=== PATIENT | female | born 1945 | race African-American/Black ===

== ENCOUNTER 2019-04-18 19:14 | Inpatient (IN) | payer MEDICARE, OTHER ==
[2019-04-23 22:52] VITALS: BP 133/56
[2019-04-24] MEDS ORDERED: EMPAGLIFLOZIN 25 MG PO SCH (09:00)
--- NOTE | 2019-04-24 10:05 | Psychiatric Evaluation ---
DATE OF SERVICE: PSYCHIATRIC INITIAL EVALUATION AND MENTAL STATUS EXAM PATIENT'S AGE: 74. SEX: Female. PHYSICIAN: Dr. Castellanos. CHIEF COMPLAINT: 5150 hold for grave disability and dangers to self and others. HISTORY OF PRESENT ILLNESS: The patient is a 74-year-old female, who was evaluated and placed on hold in [facility]. The patient has been agitated and restless. Since the patient came into the hospital, she has been extremely agitated and tried to take off her clothes and unable to follow directions. The patient also is trying to hit me when I was trying to talk to her and she kept pounding on the Dia chair. She also has been restless and confused. The patient did answer some questions, but she did say that she has 7 children and all living with her. She also did not know where she lives and she could not tell me when was the last time she ate or what did she eat last. The patient has a recent history of CVA and the patient has been having mood changes since then with agitation. She also has been having increased irritability and has been placed in soft restraints while in [facility]. No known suicidal or homicidal ideations, but the patient is actively hallucinating and psychotic. PAST PSYCHIATRIC HISTORY: The patient was evaluated in [facility] by Dr. Herzog. Otherwise, no known psychiatric problems. PAST MEDICAL HISTORY: The patient has recent history of CVA. The patient also has coronary artery disease as well as diabetes mellitus, hypertension, anemia, and urinary tract infection. SOCIAL HISTORY: The patient was living in her place. Her children are involved within her treatment and they were in the hospital yesterday, trying to take the patient out with no specific plan and the patient is on hold and I informed her that the patient cannot leave at that time. No known alcohol or drug use. ALLERGIES: DOXYCYCLINE AND METFORMIN. MENTAL STATUS EXAMINATION: The patient appears older than her stated age. Trying to take off her hospital gown. Agitated. In irritable and angry mood. Thought processes are disorganized and the patient is unable to give any coherent conversation. She seems to be actively responding and very agitated. The patient did not answer question regarding suicide or homicide. The patient is alert, but seems to be disoriented to time, place, person and situation. Impaired immediate, recent memories, and unable to assess her remote memories. Poor insight and poor judgment. ASSESSMENT: PRIMARY DIAGNOSIS: Unspecified psychosis. SECONDARY DIAGNOSIS: Dementia, moderate to severe, most probably vascular in origin TREATMENT PLAN: We will monitor the patient's behavior and condition closely. We will also continue [facility] and we will monitor her behavior for further recommendations. Also, we will place the patient on 5250 hold and we will discuss further treatment plans with the patient's daughters. ESTIMATED LENGTH OF STAY: 5-7 days. PATIENT'S STRENGTHS AND WEAKNESSES: The patient's strength is not clear at this time. Weaknesses are poor judgment and ineffective coping. [facility]# [id number]
[2019-04-24] MEDS ORDERED: Magnesium Hydroxide (MOM) 30 mL UDC PO PRN (18:46)
[2019-04-24] MEDS ORDERED: GLUCAGON HCl 1 MG KIT IM PRN (18:46)
[2019-04-24] MEDS ORDERED: Maalox 30 mL Cup PO PRN (18:46)
[2019-04-24] MEDS: INSULIN LISPRO SLIDING SCALE 100 UNITS/ML UNIT SUBQ SCH (21:15)
--- NOTE | 2019-04-25 02:18 | History & Physical ---
ADMIT DATE: 04/23/2019 CHIEF COMPLAINT: Psychosis. HISTORY OF PRESENT ILLNESS: The patient is a 74-year-old black female who has been transferred from [facility]. At [facility], the patient was placed on 5150 hold for danger to herself and others. The patient was initially admitted to [facility] for possible subdural hematoma. PAST MEDICAL HISTORY: Sepsis, urinary tract infection, possible coronary artery disease, hypertension, diabetes mellitus, nephropathy, chronic kidney disease, history of cerebrovascular accident, depression. PAST SURGICAL HISTORY: Status post hysterectomy, status post endarterectomy, status post hand surgery. MEDICATIONS: See medication reconciliation form. SOCIAL HISTORY: No reports of smoking, drinking alcohol or drug use. REVIEW OF SYSTEMS: See history of present illness. PHYSICAL EXAMINATION: GENERAL: The patient is currently asleep. VITAL SIGNS: On admission is temperature 98.6, pulse 82, blood pressure 163/74, respiratory rate 18, and O2 sat 100% on room air. HEENT: Normocephalic, atraumatic. Extraocular movements intact. Oropharynx is clear. NECK: Supple. No thyromegaly, no lymphadenopathy. CARDIOVASCULAR: S1, S2. No rubs or gallops. LUNGS: Clear. No wheezes or rhonchi. GASTROINTESTINAL: Soft, nontender, nondistended. Positive bowel sounds. GENITOURINARY: No CVA tenderness or suprapubic tenderness. BACK: No midline tenderness. EXTREMITIES: Equal pulses bilaterally. No cyanosis or clubbing. SKIN: Negative. PSYCHIATRIC: Unable to assess. LABORATORY DATA: No labs on admission. IMPRESSION: 1. Unspecified psychosis. 2. Dementia (moderate severe), most probably of vascular origin. 3. Coronary artery disease. 4. Hypertension. 5. Diabetes mellitus. 6. Chronic kidney disease. 7. Cerebrovascular accident. 8. Status post hysterectomy, status endarterectomy, and status post hand surgery. PLAN: The patient is admitted to Geropsych Unit at [facility]. Obtain labs in a.m. We will obtain further labs and consultation as needed. We will adjust medications as needed. [facility]# [id number]
[2019-04-25] MEDS: INSULIN LISPRO SLIDING SCALE 100 UNITS/ML UNIT SUBQ SCH ×4 (06:52→21:37)
[2019-04-25] MEDS: JARDIANCE 25 MG PO SCH (09:00)
--- NOTE | 2019-04-25 13:13 | Progress Notes ---
DATE: 04/25/2019 SUBJECTIVE: The patient is weak. The patient is in Geropsych Unit. The patient often 5150 hold. PHYSICAL EXAMINATION: VITAL SIGNS: Temperature 98.6, pulse 95, blood pressure 160/79, respirations 18, O2 sat 100% on room air. CARDIOVASCULAR: S1 and S2. RESPIRATORY: Clear. GASTROINTESTINAL: Soft. Positive bowel sounds. LABORATORY DATA: ____ pending. MICROBIOLOGY: No new microbiology results. RADIOLOGY: No new results. ASSESSMENT: 1. Psychosis. 2. Dementia (moderate to severe disease), most probably of vascular origin. 3. Coronary artery disease. 4. Hypertension. 5. Diabetes mellitus. 6. Chronic kidney disease. 7. Cerebrovascular accident. 8. Status post hysterectomy. 9. Status post enterectomy. 10. Status post hand surgery. PLAN: Continue current management and treatment. Awaiting lab results. We will adjust medications regarding low blood pressure. Repeat labs on Tuesday. Further recommends per Psychiatry Services. JOB# [id number]
--- NOTE | 2019-04-25 22:06 | Progress Notes ---
DATE: SUBJECTIVE: Chart reviewed and the patient interviewed. Also discussed the patient's condition with the staff and reviewed records and labs. The patient is still extremely agitated and in irritable mood and she is still confused. The patient also has been yelling and screaming and trying to take off her clothes. The patient also has been banging on the chair and trying to get out of the chair and earlier was trying to get out of bed, thinking that she can walk. The patient is legally blind and she has unsteady gait and high fall risk. She also is still confused and needs close monitoring. Also, during the interview, the patient is disheveled and is restless and is in irritable and angry mood and unable to answer any of my questions currently. The patient has no new medical issues. ASSESSMENT: The patient is still psychotic and agitated and considered to be gravely disabled and can be dangerous to others as well as herself. TREATMENT PLAN: We will continue Depakote 125 mg twice a day. Depakote blood level will be monitored. Also, I called the patient's family in order to discuss with them treatment plan including starting her on Risperdal, which she was taking prior to her admission and also trazodone, but family did not answer my call and I left a message with both hospital number and the office number. We will start the patient on Risperdal 0.5 mg twice a day and also because of her severe insomnia, we will add trazodone in a dose of 25 mg at bedtime. Also, continue working on behavioral modification and also, we will continue adjusting medications and try to get hold of her family. JOB# [id number]
[2019-04-26] MEDS: INSULIN LISPRO SLIDING SCALE 100 UNITS/ML UNIT SUBQ SCH ×4 (06:51→20:41)
[2019-04-26] MEDS: JARDIANCE 25 MG PO SCH (08:38)
--- NOTE | 2019-04-26 14:24 | General Progress Note ---
Subjective - Review of Systems Service Date: 04/26/19 Subjective: * Patient is in Geropsych unit * Patient is awake Objective - Results Recent Labs: Laboratory Last Values POC Glucose 190 MG/DL (70 - 105) H 04/26/19 11:31 - Physical Exam Vitals and I&O: Vital Signs Temp 98.1 F 04/26/19 06:39 Pulse 102 04/26/19 08:36 Resp 19 04/26/19 06:39 BP 154/81 04/26/19 08:36 Pulse Ox 99 04/26/19 06:39 Intake & Output 04/25/19 04/26/19 04/26/19 18:59 06:59 18:59 Intake Total 1000 120 Balance 1000 120 Intake: Oral 1000 120 Other: # Voids 3 Active Medications: Current Medications Acetaminophen (Tylenol) 650 mg PO Q6H PRN PRN Reason: Mild Pain/Headache/T above 101 Stop: 06/23/19 18:45 Al Hydrox/Mg Hydrox/Simethicone (Maalox) 30 ml PO Q6H PRN PRN Reason: Dyspepsia Stop: 06/23/19 18:45 Aspirin (Ecotrin) 81 mg PO DAILY [facility] Stop: 06/23/19 08:59 Last Admin: 04/26/19 08:34 Dose: 81 mg Atorvastatin Calcium (Lipitor) 40 mg PO DAILY [facility] Stop: 06/23/19 08:59 Last Admin: 04/26/19 08:33 Dose: 40 mg Benazepril HCl (Lotensin) 20 mg PO BID [facility] Stop: 06/24/19 16:59 Last Admin: 04/26/19 08:35 Dose: 20 mg Clonidine HCl (Wuiixeal-Kwq-3) 1 patch TD QFRI@1000 [facility] Stop: 06/26/19 09:59 Dextrose (Glutose 40%) 18.75 gm PO PRN PRN PRN Reason: Blood Glucose less than 70 Stop: 06/23/19 18:45 Divalproex Sodium (Depakote Sprinkle) 125 mg PO BID [facility]; Protocol Stop: 06/23/19 08:59 Last Admin: 04/26/19 08:32 Dose: 125 mg Glipizide (Glucotrol) 10 mg PO BIDWM [facility] Stop: 06/23/19 07:59 Last Admin: 04/26/19 08:34 Dose: 10 mg Glucagon (Glucagen) 1 mg IM PRN PRN PRN Reason: Blood Glucose less than 70 Stop: 06/23/19 18:45 Hydralazine HCl (Apresoline) 25 mg PO DAILY [facility] Stop: 06/23/19 08:59 Last Admin: 04/26/19 08:33 Dose: 25 mg Insulin Human Lispro (Humalog Insulin Sliding Scale) 0 units SUBQ ACHS HERB; Protocol Stop: 06/23/19 20:59 Last Admin: 04/26/19 12:18 Dose: 2 units Lorazepam (Ativan) 0.5 mg PO Q4HR PRN; Protocol PRN Reason: Anxiety Stop: 05/23/19 22:48 Last Admin: 04/26/19 02:24 Dose: 0.5 mg Magnesium Hydroxide (Milk Of Magnesia) 30 ml PO HS PRN PRN Reason: Constipation Stop: 06/23/19 18:45 Metoprolol Tartrate (Lopressor) 50 mg PO BID [facility] Stop: 06/23/19 08:59 Last Admin: 04/26/19 08:36 Dose: 50 mg Nitrofurantoin Macrocrystals (Macrobid) 100 mg PO BID [facility] Stop: 06/23/19 08:59 Last Admin: 04/26/19 08:36 Dose: 100 mg Ondansetron HCl (Zofran Odt) 4 mg PO Q6H PRN PRN Reason: Nausea / Vomiting Stop: 06/23/19 18:45 Patient Own Med- Jardiance ( Empagliflozin) 25mg Tab 1 PO DAILY [facility] Stop: 06/24/19 08:59 Last Admin: 04/26/19 08:38 Dose: 1 Risperidone (Risperdal) 0.5 mg PO BID [facility]; Protocol Stop: 06/24/19 08:59 Last Admin: 04/26/19 08:36 Dose: 0.5 mg Spironolactone (Aldactone) 25 mg PO DAILY [facility] Stop: 06/25/19 08:59 Last Admin: 04/26/19 08:34 Dose: 25 mg Trazodone HCl (Desyrel) 50 mg PO HS [facility]; Protocol Stop: 06/25/19 20:59 Zolpidem Tartrate (Ambien) 5 mg PO HS PRN PRN Reason: Insomnia Stop: 06/22/19 22:48 Last Admin: 04/25/19 21:38 Dose: 5 mg General: Alert, No acute distress HEENT: no Atraumatic, no PERRLA, no 6, no EOMI, no 7, no Mucous membr. moist/ pink, no Other, no 8, no 9, no 10, no 11, no 12, no 13, no 14, no 15, no 16, no 22, no 17, no 23, no 18, no 24, no 19, no 20, no 21 Neck: no Supple, no JVD, no Thyromegaly, no +2 carotid pulse wo bruit, no LAD, no Other Cardiovascular: no Regular rate, no Normal S1, no Normal S2, no Systolic murmurs , no Gallops, no Rubs, no Other Lungs: Clear to auscultation, Normal air movement Abdomen: Bowel sounds, Soft Extremities: no Clubbing, no Cyanosis, no Edema, no Pulses, no Tender, no Other Neurological: no Normal gait, no Normal speech, no 9, no Strength at 5/5 X4 ext , no Normal tone, no Sensation intact, no Cranial nerves 3-12 NL, no Reflexes 2+ , no 10, no Other, no 11 Skin: no Rash, no Breakdown, no Significant lesion, no Other Assessment/Plan - Assessment Assessment: See previous progress note - Plan Plan: * Continue current medications * Continue current treatment * Obtain labs in am Nutritional Asmnt/Malnutr-PDOC - Dietary Evaluation Malnutrition Findings (Please click <Entered> for more info): Nutritional Asmnt/Malnutrition Start: 04/24/19 14: 32 Text: Status: Complete Freq: Protocol: Document 04/24/19 14:33 LUIS (Rec: 04/24/19 14:36 LUIS [email or web address]) Nutritional Asmnt/Malnutrition Patient General Information Nutritional Screening High Risk Diagnosis Psychosis Pertinent Medical Hx/Surgical Hx CVA, CAD, DM, HTN, Anemia, UTI Subjective Information Pt is a 74-year-old female admitted on 04/23, transferred from [facility]. Pt is high risk d/t BMI 16.0, underweight. Took down pt foods that are not tolerated well, noted in [employer]. Visited pt, pt was outside room in Dia chair awake and looking around. Pt did not answer questions, did not seem to comprehend. Upon visual inspection, pt did not have clear signs of malnutrition or fat/muscle wasting. Pt was wearing a sweatshirt and headband, so I could not see her temples or clavicle, but eye sockets and cheeks were normal. Talked to charge nurse pertaining to a weight check as pt appeared to weigh more than noted 102 pounds. Nurse Darrick stated pt ate well this morning and lunch time. Will continue to monitor PO intake and weight check. Will downgrade pt to moderate risk and reassess when current weight is available. Anthropometrics HT: 57 WT: 102 LB (46.36 kg) BMI: 16.0 (Underweight) GI/ Skin Integrity GI: WNL BM: 04/24 x1 I/O: 60/Not Noted Skin: WNL Andres: 18 Diet Order: Cardiac, NCS, 2gm Na Allergy: Lactose Estimated Energy Needs: ( Underweight, CBW) 9231-1519 kcals (30-35 kcals/ kg) 46-56g Pro (1.0-1.2 g/kg) 2772-3140 ml (30-40 ml/kg) Current Diet Order/ Nutrition Support Cardiac, NCS, 2gm Na Pertinent Medications Lipitor, Glucotrol Pertinent Labs 04/20: Hgb/Hct 8.0/23.6, Glucose 101, Mg 2.3, T Pro 5.9 , Alb 2.9, CRP 3.4 Nutritional Hx/Data Height 1.7 m Height (Calculated Centimeters) 170.2 Current Weight (lbs) 46.266 kg Weight (Calculated Kilograms) 46.3 Weight (Calculated Grams) 75926.4 [place] Body Weight 135 LB (61.36 kg) % [place] Body Weight 76 Body Mass Index (BMI) 16.0 Weight Status Underweight GI Symptoms GI Symptoms None Last BM 04/24 x1 Skin Integrity/Comment: Skin: WNL Andres: 18 Current %PO Fair (50-74%) Estimated Nutritional Goals BEE in Kcals: Using Current wt Calories/Kcals/Kg 30-35 Kcals Calculated 2366-3106 Protein: Using Current wt Protein g/k.0-1.2 Protein Calculated 46-56 Fluid: ml 0864-9854 ml (30-40 ml/kg) Nutritional Problem 1. Problem Problem Underweight Etiology r/t consistent inadequate energy intake Signs/Symptoms: aeb BMI 16.0 (recommending weight check). Malnutrition Related to Morbid Obesity Malnutrition related to morbid obesity No Intervention/Recommendation Comments 1. Continue with Cardiac, NCS, 2gm Na diet as ordered. 2. Record pt foods which are not tolerated well (completed) . 3. Recommend current weight check. Expected Outcomes/Goals Expected Outcomes/Goals 1. PO intake to meet 75% of nutritional needs. 2. Monitor PO intake, wt, nutrition related labs, and skin integrity. 3. F/U as moderate risk in 3-5 days, 04/27-04/29
--- NOTE | 2019-04-26 22:11 | Progress Notes ---
DATE: 04/26/2019 SUBJECTIVE: Chart reviewed and the patient interviewed. Also discussed the patient's condition with the staff and reviewed records and labs. The patient seems to be slightly calmer, but she is still confused and easily agitated and in irritable mood, but showing some improvement. The patient also is still having restless episodes and aggressive and fighting with the staff, especially when trying to help her with her ADLs. The patient is still trying to get off the bed, although she knew that she cannot walk because of her weakness. She also is still resisting care and she still has difficulty sleeping at night. Otherwise, no side effects of Risperdal. ASSESSMENT: The patient is still confused and is still agitated. TREATMENT PLAN: We will continue monitoring her behavior and her condition closely. Also, we will increase trazodone to 50 mg at bedtime and continue Risperdal 0.5 mg twice a day and Depakote 125 mg twice a day. Also, continue working on behavior modification and her poor impulse control and we will continue to follow up. [facility]# [id number]
[2019-04-27] MEDS: INSULIN LISPRO SLIDING SCALE 100 UNITS/ML UNIT SUBQ SCH ×4 (06:33→20:46)
[2019-04-27] MEDS: JARDIANCE 25 MG PO SCH (08:43)
[2019-04-27] MEDS: cloNIDine 0.2 mg/24 hr Tdm TD SCH (09:02)
--- NOTE | 2019-04-28 00:13 | Progress Notes ---
DATE: 04/27/2019 SUBJECTIVE: The patient is awake. The patient is on antibiotics. OBJECTIVE: VITAL SIGNS: Temperature 98.9, pulse 92, blood 132/91, respiratory 20, O2 sats 98% on room air. CARDIOVASCULAR: S1 and S2. RESPIRATORY: Clear. GASTROINTESTINAL: Soft. Bowel sounds present. LABORATORY DATA: Sodium 139, potassium 4.2, chloride 100, bicarbonate 25, anion gap 8, glucose 177, calcium 8.9, BUN 20, creatinine 0.09, total bilirubin 0.4, alkaline phosphatase 61, AST 18, ALT 15, total of 6.4, and albumin 3.4. Valproic acid is 22. CBC: WBC 12.2, hemoglobin 8.3, hematocrit 44.9, platelet count of 375, 85% neutrophils, 15% lymphocytes. Lipid panels cholesterol 149, HDL 32, and LDL 89. ASSESSMENT: 1. Psychosis. 2. Dementia (moderate to severe). 3. Coronary artery disease. 4. Hypertension. 5. Diabetes mellitus, chronic kidney disease and cerebrovascular accident. 6. Status post hysterectomy. 7. Status post hand surgery. 7. Status post enterectomy. 8. Hyperglycemia. 9. Leukocytosis. 10. Anemia. PLAN: Continue medication. Obtain labs in a.m. We will repeat barber cultures. We will stop current antibiotics. We will obtain ID consultation if the patient continue to have elevated white count. JOB# [id number]
--- NOTE | 2019-04-28 02:08 | Progress Notes ---
DATE: 04/27/2019 SUBJECTIVE: Chart reviewed and the patient interviewed. Also discussed the patient's condition with the staff and reviewed records and labs. The patient slept slightly better yesterday, but she is still restless and she is still in irritable mood. The patient also is still hitting herself and the patient is on 1:1 observation because she is still confused and trying to get off bed. She also still needs close monitoring and gets irritable and agitated easily, but slightly easier to redirect her. ASSESSMENT: The patient is still agitated and psychotic and unable to care for self. TREATMENT PLAN: Continue monitoring her behavior and continue 1:1 observation. Also, we will increase trazodone to 75 mg at bedtime to help her sleep better and also get Depakote blood level and continue to follow up. JOB# [id number]
[2019-04-28] MEDS: INSULIN LISPRO SLIDING SCALE 100 UNITS/ML UNIT SUBQ SCH ×5 (06:41→20:38)
[2019-04-28] MEDS: JARDIANCE 25 MG PO SCH (08:56)
--- NOTE | 2019-04-28 12:42 | General Progress Note ---
Subjective - Review of Systems Service Date: 04/28/19 Events since last encounter: Per psychitary, patient is still agitated and confused. Patient is still unable to take care of herself. Subjective: * Patient is in Geropsych unit * Patient is awake * Patient is still agitated and confused * Awaiting lab results Objective - Results Recent Labs: Laboratory Last Values POC Glucose 127 MG/DL (70 - 105) H 04/26/19 16:38 - Physical Exam Vitals and I&O: Vital Signs Temp 98.0 F 04/28/19 05:43 Pulse 116 04/28/19 08:53 Resp 19 04/28/19 05:43 BP 156/77 04/28/19 08:53 Pulse Ox 100 04/28/19 05:43 Intake & Output 04/27/19 04/28/19 04/28/19 18:59 06:59 18:59 Intake Total 240 Balance 240 Intake: Oral 240 Other: # Voids 2 # Bowel Movements 0 Active Medications: Current Medications Acetaminophen (Tylenol) 650 mg PO Q6H PRN PRN Reason: Mild Pain/Headache/T above 101 Stop: 06/23/19 18:45 Last Admin: 04/28/19 11:59 Dose: 650 mg Al Hydrox/Mg Hydrox/Simethicone (Maalox) 30 ml PO Q6H PRN PRN Reason: Dyspepsia Stop: 06/23/19 18:45 Aspirin (Ecotrin) 81 mg PO DAILY [facility] Stop: 06/23/19 08:59 Last Admin: 04/28/19 08:52 Dose: 81 mg Atorvastatin Calcium (Lipitor) 40 mg PO DAILY [facility] Stop: 06/23/19 08:59 Last Admin: 04/28/19 08:53 Dose: 40 mg Benazepril HCl (Lotensin) 20 mg PO BID [facility] Stop: 06/24/19 16:59 Last Admin: 04/28/19 08:55 Dose: Not Given Clonidine HCl (Glmwkvep-Vmr-4) 1 patch TD QFRI@1000 [facility] Stop: 06/26/19 09:59 Last Admin: 04/27/19 09:02 Dose: 1 patch Dextrose (Glutose 40%) 18.75 gm PO PRN PRN PRN Reason: BS Below 70 if tolerate po Stop: 06/23/19 18:45 Divalproex Sodium (Depakote Sprinkle) 125 mg PO BID [facility]; Protocol Stop: 06/23/19 08:59 Last Admin: 04/28/19 08:52 Dose: 125 mg Glipizide (Glucotrol) 10 mg PO BIDWM HERB Stop: 06/23/19 07:59 Last Admin: 04/28/19 08:53 Dose: 10 mg Glucagon (Glucagen) 1 mg IM PRN PRN PRN Reason: BS Below 70 if not tolerate po Stop: 06/23/19 18:45 Hydralazine HCl (Apresoline) 25 mg PO DAILY [facility] Stop: 06/23/19 08:59 Last Admin: 04/28/19 08:53 Dose: 25 mg Insulin Human Lispro (Humalog Insulin Sliding Scale) 0 units SUBQ ACHS [facility]; Protocol Stop: 06/23/19 20:59 Last Admin: 04/28/19 11:20 Dose: 2 units Lorazepam (Ativan) 0.5 mg PO Q4HR PRN; Protocol PRN Reason: Anxiety Stop: 05/23/19 22:48 Last Admin: 04/28/19 08:52 Dose: 0.5 mg Magnesium Hydroxide (Milk Of Magnesia) 30 ml PO HS PRN PRN Reason: Constipation Stop: 06/23/19 18:45 Nitrofurantoin Macrocrystals (Macrobid) 100 mg PO BID [facility] Stop: 06/23/19 08:59 Last Admin: 04/28/19 08:52 Dose: 100 mg Ondansetron HCl (Zofran Odt) 4 mg PO Q6H PRN PRN Reason: Nausea / Vomiting Stop: 06/23/19 18:45 Patient Own Med- Jardiance ( Empagliflozin) 25mg Tab 1 PO DAILY [facility] Stop: 06/24/19 08:59 Last Admin: 04/28/19 08:56 Dose: Not Given Risperidone (Risperdal) 0.5 mg PO BID [facility]; Protocol Stop: 06/24/19 08:59 Last Admin: 04/28/19 08:53 Dose: 0.5 mg Spironolactone (Aldactone) 25 mg PO DAILY [facility] Stop: 06/25/19 08:59 Last Admin: 04/28/19 08:52 Dose: 25 mg Trazodone HCl (Desyrel) 75 mg PO HS [facility]; Protocol Stop: 06/26/19 20:59 Last Admin: 04/27/19 20:45 Dose: 75 mg General: Alert, No acute distress HEENT: no Atraumatic, no PERRLA, no 6, no EOMI, no 7, no Mucous membr. moist/ pink, no Other, no 8, no 9, no 10, no 11, no 12, no 13, no 14, no 15, no 16, no 22, no 17, no 23, no 18, no 24, no 19, no 20, no 21 Neck: no Supple, no JVD, no Thyromegaly, no +2 carotid pulse wo bruit, no LAD, no Other Cardiovascular: no Regular rate, no Normal S1, no Normal S2, no Systolic murmurs , no Gallops, no Rubs, no Other Lungs: Clear to auscultation, Normal air movement Abdomen: Bowel sounds, Soft Extremities: no Clubbing, no Cyanosis, no Edema, no Pulses, no Tender, no Other Neurological: no Normal gait, no Normal speech, no 9, no Strength at 5/5 X4 ext , no Normal tone, no Sensation intact, no Cranial nerves 3-12 NL, no Reflexes 2+ , no 10, no Other, no 11 Skin: no Rash, no Breakdown, no Significant lesion, no Other Assessment/Plan - Assessment Assessment: Leukocytosis Unspecified psychosis Vascular Dementia (moderate-severe) Hypertension Diabetes Mellitus H/O CVA S/P hysterectomy S/P endarterectomy S/P hand surgery - Plan Plan: * Continue current medications * Continue current treatment * Obtain labs on Tuesday * Awaiting culture results Nutritional Asmnt/Malnutr-PDOC - Dietary Evaluation Malnutrition Findings (Please click <Entered> for more info): Nutritional Asmnt/Malnutrition Start: 04/24/19 14: 32 Text: Status: Complete Freq: Protocol: Document 04/24/19 14:33 LUIS (Rec: 04/24/19 14:36 [email or web address] [id number]) Nutritional Asmnt/Malnutrition Patient General Information Nutritional Screening High Risk Diagnosis Psychosis Pertinent Medical Hx/Surgical Hx CVA, CAD, DM, HTN, Anemia, UTI Subjective Information Pt is a 74-year-old female admitted on 04/23, transferred from [facility]. Pt is high risk d/t BMI 16.0, underweight. Took down pt foods that are not tolerated well, noted in Computrition. Visited pt, pt was outside room in Dia chair awake and looking around. Pt did not answer questions, did not seem to comprehend. Upon visual inspection, pt did not have clear signs of malnutrition or fat/muscle wasting. Pt was wearing a sweatshirt and headband, so I could not see her temples or clavicle, but eye sockets and cheeks were normal. Talked to charge nurse pertaining to a weight check as pt appeared to weigh more than noted 102 pounds. Nurse Darrick stated pt ate well this morning and lunch time. Will continue to monitor PO intake and weight check. Will downgrade pt to moderate risk and reassess when current weight is available. Anthropometrics HT: 57 WT: 102 LB (46.36 kg) BMI: 16.0 (Underweight) GI/ Skin Integrity GI: WNL BM: 04/24 x1 I/O: 60/Not Noted Skin: WNL Andres: 18 Diet Order: Cardiac, NCS, 2gm Na Allergy: Lactose Estimated Energy Needs: ( Underweight, CBW) 7558-5191 kcals (30-35 kcals/ kg) 46-56g Pro (1.0-1.2 g/kg) 7377-4489 ml (30-40 ml/kg) Current Diet Order/ Nutrition Support Cardiac, NCS, 2gm Na Pertinent Medications Lipitor, Glucotrol Pertinent Labs 04/20: Hgb/Hct 8.0/23.6, Glucose 101, Mg 2.3, T Pro 5.9 , Alb 2.9, CRP 3.4 Nutritional Hx/Data Height 1.7 m Height (Calculated Centimeters) 170.2 Current Weight (lbs) 46.266 kg Weight (Calculated Kilograms) 46.3 Weight (Calculated Grams) 91817.4 [place] Body Weight 135 LB (61.36 kg) % [place] Body Weight 76 Body Mass Index (BMI) 16.0 Weight Status Underweight GI Symptoms GI Symptoms None Last BM 04/24 x1 Skin Integrity/Comment: Skin: WNL Andres: 18 Current %PO Fair (50-74%) Estimated Nutritional Goals BEE in Kcals: Using Current wt Calories/Kcals/Kg 30-35 Kcals Calculated 5811-5750 Protein: Using Current wt Protein g/k.0-1.2 Protein Calculated 46-56 Fluid: ml 6568-3222 ml (30-40 ml/kg) Nutritional Problem 1. Problem Problem Underweight Etiology r/t consistent inadequate energy intake Signs/Symptoms: aeb BMI 16.0 (recommending weight check). Malnutrition Related to Morbid Obesity Malnutrition related to morbid obesity No Intervention/Recommendation Comments 1. Continue with Cardiac, NCS, 2gm Na diet as ordered. 2. Record pt foods which are not tolerated well (completed) . 3. Recommend current weight check. Expected Outcomes/Goals Expected Outcomes/Goals 1. PO intake to meet 75% of nutritional needs. 2. Monitor PO intake, wt, nutrition related labs, and skin integrity. 3. F/U as moderate risk in 3-5 days, 04/27-04/29
--- NOTE | 2019-04-28 19:55 | Progress Notes ---
DATE: 04/28/2019 SUBJECTIVE: Chart reviewed and the patient interviewed. Also discussed the patient's condition with the staff and reviewed records and labs. Also discussed the patient's condition with the patient's daughter. The patient's daughter understands the treatment plan and also the medication that she was taking and she is agreeable to it and this was a misunderstanding of communication. The patient is still forgetful and is still disoriented, although she has some time of being clear. She is still restless during the day and she needs redirections. She also still trying to get out of the bed walking, although she knows that she is weak and cannot walk and also because of her being legally blind. She also needs a lot of assistance. Otherwise, the patient continued to compliant with taking her medications. LABORATORY DATA: Depakote blood level that was done on 04/27/2019 is 22. ASSESSMENT: The patient is still confused, although she seems to be less agitated. TREATMENT PLAN: Continue Risperdal 0.5 mg twice a day and trazodone 75 mg at bedtime. Also, Ambien was stopped yesterday, although it was given only on a p.r.n. basis, but since the patient is sleeping better with the trazodone, we will stop Ambien. [facility]# [id number]
[2019-04-29] MEDS: INSULIN LISPRO SLIDING SCALE 100 UNITS/ML UNIT SUBQ SCH ×4 (06:40→21:37)
--- NOTE | 2019-04-29 08:21 | General Progress Note ---
Subjective - Review of Systems Service Date: 04/29/19 Events since last encounter: Per psychiatry is still confused and agitated. Subjective: * Patient is in Geropsych unit * Patient is awake * Patient is still agitated and confused * Awaiting lab results Objective - Results Recent Labs: Laboratory Last Values POC Glucose 82 MG/DL (70 - 105) 04/29/19 06:05 - Physical Exam Vitals and I&O: Vital Signs Temp 97.3 F 04/29/19 06:39 Pulse 102 04/29/19 06:39 Resp 18 04/29/19 06:39 BP 131/76 04/29/19 06:39 Pulse Ox 100 04/29/19 06:39 Intake & Output 04/28/19 04/29/19 04/29/19 18:59 06:59 18:59 Intake Total 1000 120 Balance 1000 120 Intake: Oral 1000 120 Other: # Voids 6 1 # Bowel Movements 2 0 Active Medications: Current Medications Acetaminophen (Tylenol) 650 mg PO Q6H PRN PRN Reason: Mild Pain/Headache/T above 101 Stop: 06/23/19 18:45 Last Admin: 04/29/19 06:29 Dose: 650 mg Al Hydrox/Mg Hydrox/Simethicone (Maalox) 30 ml PO Q6H PRN PRN Reason: Dyspepsia Stop: 06/23/19 18:45 Aspirin (Ecotrin) 81 mg PO DAILY [facility] Stop: 06/23/19 08:59 Last Admin: 04/28/19 08:52 Dose: 81 mg Atorvastatin Calcium (Lipitor) 40 mg PO DAILY [facility] Stop: 06/23/19 08:59 Last Admin: 04/28/19 08:53 Dose: 40 mg Benazepril HCl (Lotensin) 20 mg PO BID [facility] Stop: 06/24/19 16:59 Last Admin: 04/28/19 16:50 Dose: Not Given Clonidine HCl (Nbftgfme-Bae-7) 1 patch TD QFRI@1000 [facility] Stop: 06/26/19 09:59 Last Admin: 04/27/19 09:02 Dose: 1 patch Dextrose (Glutose 40%) 18.75 gm PO PRN PRN PRN Reason: BS Below 70 if tolerate po Stop: 06/23/19 18:45 Divalproex Sodium (Depakote Sprinkle) 125 mg PO BID [facility]; Protocol Stop: 06/23/19 08:59 Last Admin: 04/28/19 16:48 Dose: 125 mg Glipizide (Glucotrol) 10 mg PO BIDWM [facility] Stop: 06/23/19 07:59 Last Admin: 04/28/19 18:45 Dose: 10 mg Glucagon (Glucagen) 1 mg IM PRN PRN PRN Reason: BS Below 70 if not tolerate po Stop: 06/23/19 18:45 Hydralazine HCl (Apresoline) 25 mg PO DAILY [facility] Stop: 06/23/19 08:59 Last Admin: 04/28/19 08:53 Dose: 25 mg Insulin Human Lispro (Humalog Insulin Sliding Scale) 0 units SUBQ ACHS [facility]; Protocol Stop: 06/23/19 20:59 Last Admin: 04/29/19 06:40 Dose: Not Given Lorazepam (Ativan) 0.5 mg PO Q4HR PRN; Protocol PRN Reason: Anxiety Stop: 05/23/19 22:48 Last Admin: 04/29/19 06:30 Dose: 0.5 mg Magnesium Hydroxide (Milk Of Magnesia) 30 ml PO HS PRN PRN Reason: Constipation Stop: 06/23/19 18:45 Nitrofurantoin Macrocrystals (Macrobid) 100 mg PO BID [facility] Stop: 06/23/19 08:59 Last Admin: 04/28/19 16:45 Dose: 100 mg Ondansetron HCl (Zofran Odt) 4 mg PO Q6H PRN PRN Reason: Nausea / Vomiting Stop: 06/23/19 18:45 Patient Own Med- Jardiance ( Empagliflozin) 25mg Tab 1 PO DAILY [facility] Stop: 06/24/19 08:59 Last Admin: 04/28/19 08:56 Dose: Not Given Risperidone (Risperdal) 0.5 mg PO BID [facility]; Protocol Stop: 06/24/19 08:59 Last Admin: 04/28/19 16:45 Dose: 0.5 mg Spironolactone (Aldactone) 25 mg PO DAILY [facility] Stop: 06/25/19 08:59 Last Admin: 04/28/19 08:52 Dose: 25 mg Trazodone HCl (Desyrel) 75 mg PO HS [facility]; Protocol Stop: 06/26/19 20:59 Last Admin: 04/28/19 20:38 Dose: 75 mg General: Alert, No acute distress HEENT: no Atraumatic, no PERRLA, no 6, no EOMI, no 7, no Mucous membr. moist/ pink, no Other, no 8, no 9, no 10, no 11, no 12, no 13, no 14, no 15, no 16, no 22, no 17, no 23, no 18, no 24, no 19, no 20, no 21 Neck: no Supple, no JVD, no Thyromegaly, no +2 carotid pulse wo bruit, no LAD, no Other Cardiovascular: no Regular rate, no Normal S1, no Normal S2, no Systolic murmurs , no Gallops, no Rubs, no Other Lungs: Clear to auscultation, Normal air movement Abdomen: Bowel sounds, Soft Extremities: no Clubbing, no Cyanosis, no Edema, no Pulses, no Tender, no Other Neurological: no Normal gait, no Normal speech, no 9, no Strength at 5/5 X4 ext , no Normal tone, no Sensation intact, no Cranial nerves 3-12 NL, no Reflexes 2+ , no 10, no Other, no 11 Skin: no Rash, no Breakdown, no Significant lesion, no Other Assessment/Plan - Assessment Assessment: Leukocytosis Unspecified psychosis Vascular Dementia (moderate-severe) Hypertension Diabetes Mellitus H/O CVA S/P hysterectomy S/P endarterectomy S/P hand surgery - Plan Plan: * Continue current medications * Continue current treatment * Obtain labs on Tuesday * Awaiting culture results Nutritional Asmnt/Malnutr-PDOC - Dietary Evaluation Malnutrition Findings (Please click <Entered> for more info): Nutritional Asmnt/Malnutrition Start: 04/24/19 14: 32 Text: Status: Complete Freq: Protocol: Document 04/24/19 14:33 LUIS (Rec: 04/24/19 14:36 LUIS [id number]) Nutritional Asmnt/Malnutrition Patient General Information Nutritional Screening High Risk Diagnosis Psychosis Pertinent Medical Hx/Surgical Hx CVA, CAD, DM, HTN, Anemia, UTI Subjective Information Pt is a 74-year-old female admitted on 04/23, transferred from [facility]. Pt is high risk d/t BMI 16.0, underweight. Took down pt foods that are not tolerated well, noted in Computrition. Visited pt, pt was outside room in Dia chair awake and looking around. Pt did not answer questions, did not seem to comprehend. Upon visual inspection, pt did not have clear signs of malnutrition or fat/muscle wasting. Pt was wearing a sweatshirt and headband, so I could not see her temples or clavicle, but eye sockets and cheeks were normal. Talked to charge nurse pertaining to a weight check as pt appeared to weigh more than noted 102 pounds. Nurse Darrick stated pt ate well this morning and lunch time. Will continue to monitor PO intake and weight check. Will downgrade pt to moderate risk and reassess when current weight is available. Anthropometrics HT: 57 WT: 102 LB (46.36 kg) BMI: 16.0 (Underweight) GI/ Skin Integrity GI: WNL BM: 04/24 x1 I/O: 60/Not Noted Skin: WNL Andres: 18 Diet Order: Cardiac, NCS, 2gm Na Allergy: Lactose Estimated Energy Needs: ( Underweight, CBW) 4353-9777 kcals (30-35 kcals/ kg) 46-56g Pro (1.0-1.2 g/kg) 4779-5740 ml (30-40 ml/kg) Current Diet Order/ Nutrition Support Cardiac, NCS, 2gm Na Pertinent Medications Lipitor, Glucotrol Pertinent Labs 04/20: Hgb/Hct 8.0/23.6, Glucose 101, Mg 2.3, T Pro 5.9 , Alb 2.9, CRP 3.4 Nutritional Hx/Data Height 1.7 m Height (Calculated Centimeters) 170.2 Current Weight (lbs) 46.266 kg Weight (Calculated Kilograms) 46.3 Weight (Calculated Grams) 93549.4 [place] Body Weight 135 LB (61.36 kg) % [place] Body Weight 76 Body Mass Index (BMI) 16.0 Weight Status Underweight GI Symptoms GI Symptoms None Last BM 04/24 x1 Skin Integrity/Comment: Skin: WNL Andres: 18 Current %PO Fair (50-74%) Estimated Nutritional Goals BEE in Kcals: Using Current wt Calories/Kcals/Kg 30-35 Kcals Calculated 8206-0286 Protein: Using Current wt Protein g/k.0-1.2 Protein Calculated 46-56 Fluid: ml 2221-4926 ml (30-40 ml/kg) Nutritional Problem 1. Problem Problem Underweight Etiology r/t consistent inadequate energy intake Signs/Symptoms: aeb BMI 16.0 (recommending weight check). Malnutrition Related to Morbid Obesity Malnutrition related to morbid obesity No Intervention/Recommendation Comments 1. Continue with Cardiac, NCS, 2gm Na diet as ordered. 2. Record pt foods which are not tolerated well (completed) . 3. Recommend current weight check. Expected Outcomes/Goals Expected Outcomes/Goals 1. PO intake to meet 75% of nutritional needs. 2. Monitor PO intake, wt, nutrition related labs, and skin integrity. 3. F/U as moderate risk in 3-5 days, 04/27-04/29
[2019-04-29] MEDS: JARDIANCE 25 MG PO SCH (08:46)
--- NOTE | 2019-04-29 20:22 | Progress Notes ---
DATE: 04/29/2019 SUBJECTIVE: Chart reviewed and the patient interviewed. Also discussed the patient's condition with the staff and reviewed records and labs. The patient continued to be disoriented, forgetful, and restless. The patient also is still trying to get out of the bed, exposing herself to dangers of falling and has to be monitored closely and she still needs lots of redirections. The patient has been given Ativan on a p.r.n. basis. ASSESSMENT: The patient is still agitated and is still psychotic and needs redirections. TREATMENT PLAN: Continue current treatment and medications. Also, continue working on behavior modification and her irritability and continue to follow up closely. JOB# [id number]
[2019-04-30] MEDS: INSULIN LISPRO SLIDING SCALE 100 UNITS/ML UNIT SUBQ SCH ×4 (06:58→21:00)
[2019-04-30] MEDS: JARDIANCE 25 MG PO SCH (08:08)
--- NOTE | 2019-04-30 09:18 | General Progress Note ---
Subjective - Review of Systems Service Date: 04/30/19 Subjective: * Patient is in Geropsych unit * Patient is awake * Patient is still agitated and confused * Awaiting lab results Objective - Results Recent Labs: Laboratory Last Values POC Glucose 83 MG/DL (70 - 105) 04/30/19 06:18 - Physical Exam Vitals and I&O: Vital Signs Temp 97.6 F 04/30/19 06:29 Pulse 70 04/30/19 08:05 Resp 18 04/30/19 06:29 BP 134/83 04/30/19 08:05 Pulse Ox 100 04/30/19 06:29 Intake & Output 04/29/19 04/30/19 04/30/19 18:59 06:59 18:59 Intake Total 240 120 Balance 240 120 Intake: Oral 240 120 Other: # Voids 1 2 Active Medications: Current Medications Acetaminophen (Tylenol) 650 mg PO Q6H PRN PRN Reason: Mild Pain/Headache/T above 101 Stop: 06/23/19 18:45 Last Admin: 04/30/19 08:03 Dose: 650 mg Al Hydrox/Mg Hydrox/Simethicone (Maalox) 30 ml PO Q6H PRN PRN Reason: Dyspepsia Stop: 06/23/19 18:45 Aspirin (Ecotrin) 81 mg PO DAILY [facility] Stop: 06/23/19 08:59 Last Admin: 04/30/19 08:05 Dose: 81 mg Atorvastatin Calcium (Lipitor) 40 mg PO DAILY [facility] Stop: 06/23/19 08:59 Last Admin: 04/30/19 08:05 Dose: 40 mg Benazepril HCl (Lotensin) 20 mg PO BID [facility] Stop: 06/24/19 16:59 Last Admin: 04/30/19 08:05 Dose: 20 mg Clonidine HCl (Lrpotptz-Qjj-4) 1 patch TD QFRI@1000 [facility] Stop: 06/26/19 09:59 Last Admin: 04/27/19 09:02 Dose: 1 patch Dextrose (Glutose 40%) 18.75 gm PO PRN PRN PRN Reason: BS Below 70 if tolerate po Stop: 06/23/19 18:45 Divalproex Sodium (Depakote Sprinkle) 125 mg PO BID [facility]; Protocol Stop: 06/23/19 08:59 Last Admin: 04/30/19 08:04 Dose: 125 mg Glipizide (Glucotrol) 10 mg PO BIDWM [facility] Stop: 06/23/19 07:59 Last Admin: 04/30/19 08:04 Dose: 10 mg Glucagon (Glucagen) 1 mg IM PRN PRN PRN Reason: BS Below 70 if not tolerate po Stop: 06/23/19 18:45 Hydralazine HCl (Apresoline) 25 mg PO DAILY [facility] Stop: 06/23/19 08:59 Last Admin: 04/30/19 08:03 Dose: 25 mg Insulin Human Lispro (Humalog Insulin Sliding Scale) 0 units SUBQ ACHS [facility]; Protocol Stop: 06/23/19 20:59 Last Admin: 04/30/19 06:58 Dose: Not Given Lorazepam (Ativan) 0.5 mg PO Q4HR PRN; Protocol PRN Reason: Anxiety Stop: 05/23/19 22:48 Last Admin: 04/30/19 08:03 Dose: 0.5 mg Magnesium Hydroxide (Milk Of Magnesia) 30 ml PO HS PRN PRN Reason: Constipation Stop: 06/23/19 18:45 Nitrofurantoin Macrocrystals (Macrobid) 100 mg PO BID [facility] Stop: 06/23/19 08:59 Last Admin: 04/30/19 08:06 Dose: 100 mg Ondansetron HCl (Zofran Odt) 4 mg PO Q6H PRN PRN Reason: Nausea / Vomiting Stop: 06/23/19 18:45 Patient Own Med- Jardiance ( Empagliflozin) 25mg Tab 1 PO DAILY [facility] Stop: 06/24/19 08:59 Last Admin: 04/30/19 08:08 Dose: 1 Risperidone (Risperdal) 0.5 mg PO BID [facility]; Protocol Stop: 06/24/19 08:59 Last Admin: 04/30/19 08:03 Dose: 0.5 mg Spironolactone (Aldactone) 25 mg PO DAILY [facility] Stop: 06/25/19 08:59 Last Admin: 04/30/19 08:04 Dose: 25 mg Trazodone HCl (Desyrel) 100 mg PO HS [facility]; Protocol Stop: 06/29/19 20:59 General: Alert, No acute distress HEENT: no Atraumatic, no PERRLA, no 6, no EOMI, no 7, no Mucous membr. moist/ pink, no Other, no 8, no 9, no 10, no 11, no 12, no 13, no 14, no 15, no 16, no 22, no 17, no 23, no 18, no 24, no 19, no 20, no 21 Neck: no Supple, no JVD, no Thyromegaly, no +2 carotid pulse wo bruit, no LAD, no Other Cardiovascular: no Regular rate, no Normal S1, no Normal S2, no Systolic murmurs , no Gallops, no Rubs, no Other Lungs: Clear to auscultation, Normal air movement Abdomen: Bowel sounds, Soft Extremities: no Clubbing, no Cyanosis, no Edema, no Pulses, no Tender, no Other Neurological: no Normal gait, no Normal speech, no 9, no Strength at 5/5 X4 ext , no Normal tone, no Sensation intact, no Cranial nerves 3-12 NL, no Reflexes 2+ , no 10, no Other, no 11 Skin: no Rash, no Breakdown, no Significant lesion, no Other Assessment/Plan - Assessment Assessment: Leukocytosis Unspecified psychosis Vascular Dementia (moderate-severe) Hypertension Diabetes Mellitus H/O CVA S/P hysterectomy S/P endarterectomy S/P hand surgery - Plan Plan: * Continue current medications * Continue current treatment * Awaitg lab results * Awaiting culture results * Further per psychiatry Nutritional Asmnt/Malnutr-PDOC - Dietary Evaluation Malnutrition Findings (Please click <Entered> for more info): Nutritional Asmnt/Malnutrition Start: 04/24/19 14: 32 Text: Status: Complete Freq: Protocol: Document 04/24/19 14:33 LUIS (Rec: 04/24/19 14:36 LUIS [email or web address]) Nutritional Asmnt/Malnutrition Patient General Information Nutritional Screening High Risk Diagnosis Psychosis Pertinent Medical Hx/Surgical Hx CVA, CAD, DM, HTN, Anemia, UTI Subjective Information Pt is a 74-year-old female admitted on 04/23, transferred from [facility]. Pt is high risk d/t BMI 16.0, underweight. Took down pt foods that are not tolerated well, noted in Computrition. Visited pt, pt was outside room in Dia chair awake and looking around. Pt did not answer questions, did not seem to comprehend. Upon visual inspection, pt did not have clear signs of malnutrition or fat/muscle wasting. Pt was wearing a sweatshirt and headband, so I could not see her temples or clavicle, but eye sockets and cheeks were normal. Talked to charge nurse pertaining to a weight check as pt appeared to weigh more than noted 102 pounds. Nurse Darrick stated pt ate well this morning and lunch time. Will continue to monitor PO intake and weight check. Will downgrade pt to moderate risk and reassess when current weight is available. Anthropometrics HT: 57 WT: 102 LB (46.36 kg) BMI: 16.0 (Underweight) GI/ Skin Integrity GI: WNL BM: 04/24 x1 I/O: 60/Not Noted Skin: WNL Andres: 18 Diet Order: Cardiac, NCS, 2gm Na Allergy: Lactose Estimated Energy Needs: ( Underweight, CBW) 2806-4420 kcals (30-35 kcals/ kg) 46-56g Pro (1.0-1.2 g/kg) 5388-9646 ml (30-40 ml/kg) Current Diet Order/ Nutrition Support Cardiac, NCS, 2gm Na Pertinent Medications Lipitor, Glucotrol Pertinent Labs 04/20: Hgb/Hct 8.0/23.6, Glucose 101, Mg 2.3, T Pro 5.9 , Alb 2.9, CRP 3.4 Nutritional Hx/Data Height 1.7 m Height (Calculated Centimeters) 170.2 Current Weight (lbs) 46.266 kg Weight (Calculated Kilograms) 46.3 Weight (Calculated Grams) 31243.4 [place] Body Weight 135 LB (61.36 kg) % [place] Body Weight 76 Body Mass Index (BMI) 16.0 Weight Status Underweight GI Symptoms GI Symptoms None Last BM 04/24 x1 Skin Integrity/Comment: Skin: WNL Andres: 18 Current %PO Fair (50-74%) Estimated Nutritional Goals BEE in Kcals: Using Current wt Calories/Kcals/Kg 30-35 Kcals Calculated 9846-7208 Protein: Using Current wt Protein g/k.0-1.2 Protein Calculated 46-56 Fluid: ml 8436-7120 ml (30-40 ml/kg) Nutritional Problem 1. Problem Problem Underweight Etiology r/t consistent inadequate energy intake Signs/Symptoms: aeb BMI 16.0 (recommending weight check). Malnutrition Related to Morbid Obesity Malnutrition related to morbid obesity No Intervention/Recommendation Comments 1. Continue with Cardiac, NCS, 2gm Na diet as ordered. 2. Record pt foods which are not tolerated well (completed) . 3. Recommend current weight check. Expected Outcomes/Goals Expected Outcomes/Goals 1. PO intake to meet 75% of nutritional needs. 2. Monitor PO intake, wt, nutrition related labs, and skin integrity. 3. F/U as moderate risk in 3-5 days, 04/27-04/29
--- NOTE | 2019-05-01 01:55 | Progress Notes ---
DATE: 04/30/2019 SUBJECTIVE: Chart was reviewed and the patient interviewed. Also discussed the patient's condition with the staff and reviewed records and labs. The patient still has periods of anxiety and irritability. The patient noted banging the side rails of the bed and trying to get out of the bed in a confused state. The patient also still has difficulty following directions. Also, has difficulty sleeping at night and according to staff, she did not sleep well last night. Also, the patient needs lots of redirections. Her hygiene is still poor but at the same time, she is able to follow directions. ASSESSMENT: The patient is still agitated and psychotic. TREATMENT PLAN: Continue to monitor behavior and condition closely. Also, increase trazodone to 100 mg at bedtime. Also we will try to arrange about discharge of the patient and if possible placement or if the patient's daughter would like to take her back home. JOB# [id number]
[2019-05-01] MEDS: INSULIN LISPRO SLIDING SCALE 100 UNITS/ML UNIT SUBQ SCH ×4 (06:59→20:33)
[2019-05-01] MEDS: JARDIANCE 25 MG PO SCH (09:35)
--- NOTE | 2019-05-01 10:55 | Progress Notes ---
DATE: SUBJECTIVE: Chart reviewed and the patient interviewed. Also discussed the patient's condition with the staff and reviewed records and labs. The patient is still having episodes of agitation and irritability, but slightly easier to redirect her. The patient also slept slightly better yesterday. She is still confused and is trying to get off bed exposing herself to dangers of falling. She also still has mood swings. Otherwise, the patient is compliant with medications with no side effects of medications. ASSESSMENT: The patient is still confused and needs close monitoring. TREATMENT PLAN: Continue monitoring her behavior and her condition closely. Also planning to discuss with the patient's daughter discharge plans and if possible placement issue and we will continue to follow up closely. [facility]# [id number]
--- NOTE | 2019-05-01 19:30 | General Progress Note ---
Subjective - Review of Systems Service Date: 05/01/19 Subjective: * Patient is in Geropsych unit * Patient is awake * Patient is still agitated and confused * Awaiting lab results Objective - Results Recent Labs: Laboratory Last Values POC Glucose 91 MG/DL (70 - 105) 05/01/19 11:53 - Physical Exam Vitals and I&O: Vital Signs Temp 97.2 F 05/01/19 14:00 Pulse 106 05/01/19 16:26 Resp 20 05/01/19 14:00 BP 123/70 05/01/19 16:26 Pulse Ox 100 05/01/19 14:00 Intake & Output 05/01/19 05/01/19 05/02/19 06:59 18:59 06:59 Intake Total 120 Balance 120 Intake: Oral 120 Other: # Voids 1 # Bowel Movements 0 Active Medications: Current Medications Acetaminophen (Tylenol) 650 mg PO Q6H PRN PRN Reason: Mild Pain/Headache/T above 101 Stop: 06/23/19 18:45 Last Admin: 04/30/19 13:08 Dose: 650 mg Al Hydrox/Mg Hydrox/Simethicone (Maalox) 30 ml PO Q6H PRN PRN Reason: Dyspepsia Stop: 06/23/19 18:45 Last Admin: 05/01/19 18:08 Dose: 30 ml Aspirin (Ecotrin) 81 mg PO DAILY [facility] Stop: 06/23/19 08:59 Last Admin: 05/01/19 09:05 Dose: 81 mg Atorvastatin Calcium (Lipitor) 40 mg PO DAILY [facility] Stop: 06/23/19 08:59 Last Admin: 05/01/19 09:05 Dose: 40 mg Benazepril HCl (Lotensin) 20 mg PO BID [facility] Stop: 06/24/19 16:59 Last Admin: 05/01/19 16:26 Dose: 20 mg Clonidine HCl (Ejurjpxa-Vdt-6) 1 patch TD QFRI@1000 [facility] Stop: 06/26/19 09:59 Last Admin: 04/27/19 09:02 Dose: 1 patch Dextrose (Glutose 40%) 18.75 gm PO PRN PRN PRN Reason: BS Below 70 if tolerate po Stop: 06/23/19 18:45 Divalproex Sodium (Depakote Sprinkle) 125 mg PO BID [facility]; Protocol Stop: 06/23/19 08:59 Last Admin: 05/01/19 16:25 Dose: 125 mg Glipizide (Glucotrol) 10 mg PO BIDWM [facility] Stop: 06/23/19 07:59 Last Admin: 05/01/19 17:26 Dose: 10 mg Glucagon (Glucagen) 1 mg IM PRN PRN PRN Reason: BS Below 70 if not tolerate po Stop: 06/23/19 18:45 Hydralazine HCl (Apresoline) 25 mg PO DAILY [facility] Stop: 06/23/19 08:59 Last Admin: 05/01/19 09:05 Dose: 25 mg Insulin Human Lispro (Humalog Insulin Sliding Scale) 0 units SUBQ ACHS [facility]; Protocol Stop: 06/23/19 20:59 Last Admin: 05/01/19 17:05 Dose: Not Given Lorazepam (Ativan) 0.5 mg PO Q4HR PRN; Protocol PRN Reason: Anxiety Stop: 05/23/19 22:48 Last Admin: 04/30/19 13:08 Dose: 0.5 mg Magnesium Hydroxide (Milk Of Magnesia) 30 ml PO HS PRN PRN Reason: Constipation Stop: 06/23/19 18:45 Nitrofurantoin Macrocrystals (Macrobid) 100 mg PO BID [facility] Stop: 06/23/19 08:59 Last Admin: 05/01/19 16:25 Dose: 100 mg Ondansetron HCl (Zofran Odt) 4 mg PO Q6H PRN PRN Reason: Nausea / Vomiting Stop: 06/23/19 18:45 Last Admin: 04/30/19 13:08 Dose: 4 mg Patient Own Med- Jardiance ( Empagliflozin) 25mg Tab 1 PO DAILY [facility] Stop: 06/24/19 08:59 Last Admin: 05/01/19 09:35 Dose: 1 Risperidone (Risperdal) 0.5 mg PO BID [facility]; Protocol Stop: 06/24/19 08:59 Last Admin: 05/01/19 16:26 Dose: 0.5 mg Spironolactone (Aldactone) 25 mg PO DAILY [facility] Stop: 06/25/19 08:59 Last Admin: 05/01/19 09:04 Dose: 25 mg Trazodone HCl (Desyrel) 100 mg PO HS [facility]; Protocol Stop: 06/29/19 20:59 Last Admin: 04/30/19 21:00 Dose: 100 mg General: Alert, No acute distress HEENT: no Atraumatic, no PERRLA, no 6, no EOMI, no 7, no Mucous membr. moist/ pink, no Other, no 8, no 9, no 10, no 11, no 12, no 13, no 14, no 15, no 16, no 22, no 17, no 23, no 18, no 24, no 19, no 20, no 21 Neck: no Supple, no JVD, no Thyromegaly, no +2 carotid pulse wo bruit, no LAD, no Other Cardiovascular: no Regular rate, no Normal S1, no Normal S2, no Systolic murmurs , no Gallops, no Rubs, no Other Lungs: Clear to auscultation, Normal air movement Abdomen: Bowel sounds, Soft Extremities: no Clubbing, no Cyanosis, no Edema, no Pulses, no Tender, no Other Neurological: no Normal gait, no Normal speech, no 9, no Strength at 5/5 X4 ext , no Normal tone, no Sensation intact, no Cranial nerves 3-12 NL, no Reflexes 2+ , no 10, no Other, no 11 Skin: no Rash, no Breakdown, no Significant lesion, no Other Assessment/Plan - Assessment Assessment: Leukocytosis Unspecified psychosis Vascular Dementia (moderate-severe) Hypertension Diabetes Mellitus H/O CVA S/P hysterectomy S/P endarterectomy S/P hand surgery - Plan Plan: * Continue current medications * Continue current treatment * Awaitg lab results * Awaiting culture results * Further per psychiatry Nutritional Asmnt/Malnutr-PDOC - Dietary Evaluation Malnutrition Findings (Please click <Entered> for more info): Nutritional Asmnt/Malnutrition Start: 04/24/19 14: 32 Text: Status: Complete Freq: Protocol: Document 04/24/19 14:33 LUIS (Rec: 04/24/19 14:36 LUIS [email or web address]) Nutritional Asmnt/Malnutrition Patient General Information Nutritional Screening High Risk Diagnosis Psychosis Pertinent Medical Hx/Surgical Hx CVA, CAD, DM, HTN, Anemia, UTI Subjective Information Pt is a 74-year-old female admitted on 04/23, transferred from [facility]. Pt is high risk d/t BMI 16.0, underweight. Took down pt foods that are not tolerated well, noted in Computrition. Visited pt, pt was outside room in Dia chair awake and looking around. Pt did not answer questions, did not seem to comprehend. Upon visual inspection, pt did not have clear signs of malnutrition or fat/muscle wasting. Pt was wearing a sweatshirt and headband, so I could not see her temples or clavicle, but eye sockets and cheeks were normal. Talked to charge nurse pertaining to a weight check as pt appeared to weigh more than noted 102 pounds. Nurse Darrick stated pt ate well this morning and lunch time. Will continue to monitor PO intake and weight check. Will downgrade pt to moderate risk and reassess when current weight is available. Anthropometrics HT: 57 WT: 102 LB (46.36 kg) BMI: 16.0 (Underweight) GI/ Skin Integrity GI: WNL BM: 04/24 x1 I/O: 60/Not Noted Skin: WNL Andres: 18 Diet Order: Cardiac, NCS, 2gm Na Allergy: Lactose Estimated Energy Needs: ( Underweight, CBW) 4196-1213 kcals (30-35 kcals/ kg) 46-56g Pro (1.0-1.2 g/kg) 0174-8927 ml (30-40 ml/kg) Current Diet Order/ Nutrition Support Cardiac, NCS, 2gm Na Pertinent Medications Lipitor, Glucotrol Pertinent Labs 04/20: Hgb/Hct 8.0/23.6, Glucose 101, Mg 2.3, T Pro 5.9 , Alb 2.9, CRP 3.4 Nutritional Hx/Data Height 1.7 m Height (Calculated Centimeters) 170.2 Current Weight (lbs) 46.266 kg Weight (Calculated Kilograms) 46.3 Weight (Calculated Grams) 39960.4 [place] Body Weight 135 LB (61.36 kg) % [place] Body Weight 76 Body Mass Index (BMI) 16.0 Weight Status Underweight GI Symptoms GI Symptoms None Last BM 04/24 x1 Skin Integrity/Comment: Skin: WNL Andres: 18 Current %PO Fair (50-74%) Estimated Nutritional Goals BEE in Kcals: Using Current wt Calories/Kcals/Kg 30-35 Kcals Calculated 9086-3336 Protein: Using Current wt Protein g/k.0-1.2 Protein Calculated 46-56 Fluid: ml 1031-2719 ml (30-40 ml/kg) Nutritional Problem 1. Problem Problem Underweight Etiology r/t consistent inadequate energy intake Signs/Symptoms: aeb BMI 16.0 (recommending weight check). Malnutrition Related to Morbid Obesity Malnutrition related to morbid obesity No Intervention/Recommendation Comments 1. Continue with Cardiac, NCS, 2gm Na diet as ordered. 2. Record pt foods which are not tolerated well (completed) . 3. Recommend current weight check. Expected Outcomes/Goals Expected Outcomes/Goals 1. PO intake to meet 75% of nutritional needs. 2. Monitor PO intake, wt, nutrition related labs, and skin integrity. 3. F/U as moderate risk in 3-5 days, 04/27-04/29
[2019-05-02] MEDS: INSULIN LISPRO SLIDING SCALE 100 UNITS/ML UNIT SUBQ SCH ×4 (07:01→20:22)
[2019-05-02] MEDS: JARDIANCE 25 MG PO SCH (09:49)
--- NOTE | 2019-05-02 11:10 | Progress Notes ---
DATE: 05/02/2019 PSYCHIATRIC PROGRESS NOTE SUBJECTIVE: Chart reviewed and patient interviewed. Also, discussed the patient's condition with the staff and reviewed records and labs. The patient still has disorganized thoughts and repeating sentences and the questions, but at the same time, she seems to be calmer and easier to redirect her. The patient still has episodes of beating on her chest for no reason and in a confused state. She also is still having episodes of being suspicious and paranoid, but in general, not as agitated. The patient also has been compliant with taking her medications and she is sleeping better. ASSESSMENT: The patient is showing improvement, but still confused. TREATMENT PLAN: Continue monitoring her behavior and her condition closely. Also, continue Depakote 125 mg twice a day, Risperdal 0.5 mg twice a day, and trazodone 100 mg at bedtime. Depakote blood level that was done yesterday came back to be at 23. Continue same dose and continue to follow up closely. Also, we will try to contact her daughter today to discussed with her discharge plans and the placement issue if she agrees. JOB# [id number]
[2019-05-03] MEDS: JARDIANCE 25 MG PO SCH (08:56)
--- NOTE | 2019-05-03 11:30 | General Progress Note ---
Subjective - Review of Systems Service Date: 05/02/19 Subjective: * Patient is in Geropsych unit * Patient is awake * Patient is still confused * Awaiting lab results Objective - Results Recent Labs: Laboratory Last Values POC Glucose 91 MG/DL (70 - 105) 05/01/19 11:53 - Physical Exam Vitals and I&O: Vital Signs Temp 97.8 F 05/03/19 06:34 Pulse 86 05/03/19 08:38 Resp 16 05/03/19 08:00 BP 137/69 05/03/19 08:38 Pulse Ox 96 05/03/19 06:34 Intake & Output 05/02/19 05/03/19 05/03/19 18:59 06:59 18:59 Intake Total 900 120 Balance 900 120 Intake: Oral 900 120 Other: # Voids 3 3 # Bowel Movements 1 Active Medications: Current Medications Acetaminophen (Tylenol) 650 mg PO Q6H PRN PRN Reason: Mild Pain/Headache/T above 101 Stop: 06/23/19 18:45 Last Admin: 05/03/19 02:39 Dose: 650 mg Al Hydrox/Mg Hydrox/Simethicone (Maalox) 30 ml PO Q6H PRN PRN Reason: Dyspepsia Stop: 06/23/19 18:45 Last Admin: 05/01/19 18:08 Dose: 30 ml Aspirin (Ecotrin) 81 mg PO DAILY [facility] Stop: 06/23/19 08:59 Last Admin: 05/03/19 08:35 Dose: 81 mg Atorvastatin Calcium (Lipitor) 40 mg PO DAILY [facility] Stop: 06/23/19 08:59 Last Admin: 05/03/19 08:35 Dose: 40 mg Benazepril HCl (Lotensin) 20 mg PO BID [facility] Stop: 06/24/19 16:59 Last Admin: 05/03/19 08:37 Dose: 20 mg Clonidine HCl (Jbvsamka-Pry-3) 1 patch TD QFRI@1000 [facility] Stop: 06/26/19 09:59 Last Admin: 04/27/19 09:02 Dose: 1 patch Dextrose (Glutose 40%) 18.75 gm PO PRN PRN PRN Reason: BS Below 70 if tolerate po Stop: 06/23/19 18:45 Divalproex Sodium (Depakote Sprinkle) 125 mg PO BID [facility]; Protocol Stop: 06/23/19 08:59 Last Admin: 05/03/19 08:35 Dose: 125 mg Glipizide (Glucotrol) 10 mg PO BIDWM HERB Stop: 06/23/19 07:59 Last Admin: 05/03/19 08:37 Dose: 10 mg Glucagon (Glucagen) 1 mg IM PRN PRN PRN Reason: BS Below 70 if not tolerate po Stop: 06/23/19 18:45 Hydralazine HCl (Apresoline) 25 mg PO DAILY [facility] Stop: 06/23/19 08:59 Last Admin: 05/03/19 08:38 Dose: 25 mg Insulin Human Lispro (Humalog Insulin Sliding Scale) 0 units SUBQ ACHS [facility]; Protocol Stop: 06/23/19 20:59 Last Admin: 05/02/19 20:22 Dose: Not Given Lorazepam (Ativan) 0.5 mg PO Q4HR PRN; Protocol PRN Reason: Anxiety Stop: 05/23/19 22:48 Last Admin: 05/02/19 15:21 Dose: 0.5 mg Magnesium Hydroxide (Milk Of Magnesia) 30 ml PO HS PRN PRN Reason: Constipation Stop: 06/23/19 18:45 Ondansetron HCl (Zofran Odt) 4 mg PO Q6H PRN PRN Reason: Nausea / Vomiting Stop: 06/23/19 18:45 Last Admin: 04/30/19 13:08 Dose: 4 mg Patient Own Med- Jardiance ( Empagliflozin) 25mg Tab 1 PO DAILY [facility] Stop: 06/24/19 08:59 Last Admin: 05/03/19 08:56 Dose: 1 Risperidone (Risperdal) 0.5 mg PO BID [facility]; Protocol Stop: 06/24/19 08:59 Last Admin: 05/03/19 08:35 Dose: 0.5 mg Spironolactone (Aldactone) 25 mg PO DAILY [facility] Stop: 06/25/19 08:59 Last Admin: 05/03/19 08:36 Dose: 25 mg Trazodone HCl (Desyrel) 100 mg PO HS [facility]; Protocol Stop: 06/29/19 20:59 Last Admin: 05/02/19 20:20 Dose: 100 mg General: Alert, No acute distress HEENT: no Atraumatic, no PERRLA, no 6, no EOMI, no 7, no Mucous membr. moist/ pink, no Other, no 8, no 9, no 10, no 11, no 12, no 13, no 14, no 15, no 16, no 22, no 17, no 23, no 18, no 24, no 19, no 20, no 21 Neck: no Supple, no JVD, no Thyromegaly, no +2 carotid pulse wo bruit, no LAD, no Other Cardiovascular: no Regular rate, no Normal S1, no Normal S2, no Systolic murmurs , no Gallops, no Rubs, no Other Lungs: Clear to auscultation, Normal air movement Abdomen: Bowel sounds, Soft Extremities: no Clubbing, no Cyanosis, no Edema, no Pulses, no Tender, no Other Neurological: no Normal gait, no Normal speech, no 9, no Strength at 5/5 X4 ext , no Normal tone, no Sensation intact, no Cranial nerves 3-12 NL, no Reflexes 2+ , no 10, no Other, no 11 Skin: no Rash, no Breakdown, no Significant lesion, no Other Assessment/Plan - Assessment Assessment: Leukocytosis Unspecified psychosis Vascular Dementia (moderate-severe) Hypertension Diabetes Mellitus H/O CVA S/P hysterectomy S/P endarterectomy S/P hand surgery - Plan Plan: * Continue current medications * Continue current treatment * Awaitg lab results * Awaiting culture results * Further per psychiatry Nutritional Asmnt/Malnutr-PDOC - Dietary Evaluation Malnutrition Findings (Please click <Entered> for more info): Nutritional Asmnt/Malnutrition Start: 04/24/19 14: 32 Text: Status: Complete Freq: Protocol: Document 04/24/19 14:33 LUIS (Rec: 04/24/19 14:36 [email or web address]) Nutritional Asmnt/Malnutrition Patient General Information Nutritional Screening High Risk Diagnosis Psychosis Pertinent Medical Hx/Surgical Hx CVA, CAD, DM, HTN, Anemia, UTI Subjective Information Pt is a 74-year-old female admitted on 04/23, transferred from [facility]. Pt is high risk d/t BMI 16.0, underweight. Took down pt foods that are not tolerated well, noted in Computrition. Visited pt, pt was outside room in Dia chair awake and looking around. Pt did not answer questions, did not seem to comprehend. Upon visual inspection, pt did not have clear signs of malnutrition or fat/muscle wasting. Pt was wearing a sweatshirt and headband, so I could not see her temples or clavicle, but eye sockets and cheeks were normal. Talked to charge nurse pertaining to a weight check as pt appeared to weigh more than noted 102 pounds. Nurse Darrick stated pt ate well this morning and lunch time. Will continue to monitor PO intake and weight check. Will downgrade pt to moderate risk and reassess when current weight is available. Anthropometrics HT: 57 WT: 102 LB (46.36 kg) BMI: 16.0 (Underweight) GI/ Skin Integrity GI: WNL BM: 04/24 x1 I/O: 60/Not Noted Skin: WNL Andres: 18 Diet Order: Cardiac, NCS, 2gm Na Allergy: Lactose Estimated Energy Needs: ( Underweight, CBW) 0307-4788 kcals (30-35 kcals/ kg) 46-56g Pro (1.0-1.2 g/kg) 4967-9835 ml (30-40 ml/kg) Current Diet Order/ Nutrition Support Cardiac, NCS, 2gm Na Pertinent Medications Lipitor, Glucotrol Pertinent Labs 04/20: Hgb/Hct 8.0/23.6, Glucose 101, Mg 2.3, T Pro 5.9 , Alb 2.9, CRP 3.4 Nutritional Hx/Data Height 1.7 m Height (Calculated Centimeters) 170.2 Current Weight (lbs) 46.266 kg Weight (Calculated Kilograms) 46.3 Weight (Calculated Grams) 39191.4 [place] Body Weight 135 LB (61.36 kg) % [place] Body Weight 76 Body Mass Index (BMI) 16.0 Weight Status Underweight GI Symptoms GI Symptoms None Last BM 04/24 x1 Skin Integrity/Comment: Skin: WNL Andres: 18 Current %PO Fair (50-74%) Estimated Nutritional Goals BEE in Kcals: Using Current wt Calories/Kcals/Kg 30-35 Kcals Calculated 4573-7618 Protein: Using Current wt Protein g/k.0-1.2 Protein Calculated 46-56 Fluid: ml 0357-7897 ml (30-40 ml/kg) Nutritional Problem 1. Problem Problem Underweight Etiology r/t consistent inadequate energy intake Signs/Symptoms: aeb BMI 16.0 (recommending weight check). Malnutrition Related to Morbid Obesity Malnutrition related to morbid obesity No Intervention/Recommendation Comments 1. Continue with Cardiac, NCS, 2gm Na diet as ordered. 2. Record pt foods which are not tolerated well (completed) . 3. Recommend current weight check. Expected Outcomes/Goals Expected Outcomes/Goals 1. PO intake to meet 75% of nutritional needs. 2. Monitor PO intake, wt, nutrition related labs, and skin integrity. 3. F/U as moderate risk in 3-5 days, 04/27-04/29
--- NOTE | 2019-05-03 11:31 | Progress Notes ---
DATE: 05/03/2019 SUBJECTIVE: Chart reviewed and the patient interviewed. Also discussed the patient's condition with the staff and reviewed records and labs. The patient is still pleasantly confused and she is still actively talking to herself. The patient also is still restless and is still in angry and irritable mood. The patient also is still having mood swings and she is still trying to get out of bed. She also has been not able to follow directions and has been demanding. Otherwise, the patient is compliant with taking her medications and also she has been sleeping better. ASSESSMENT: The patient is still confused, but less irritable and less agitated. TREATMENT PLAN: Continue to monitor behavior and condition closely. Also, continue adjusting psychotropic medications and work on behavioral modification. Also planning to talk to her daughter today and discussed with her further treatment options and further treatment plans. JOB# [id number]
--- NOTE | 2019-05-03 11:32 | General Progress Note ---
Subjective - Review of Systems Service Date: 05/03/19 Subjective: * Patient is in Geropsych unit * Patient is awake * Patient is still confused * Awaiting lab results Objective - Results Recent Labs: Laboratory Last Values POC Glucose 91 MG/DL (70 - 105) 05/01/19 11:53 - Physical Exam Vitals and I&O: Vital Signs Temp 97.8 F 05/03/19 06:34 Pulse 86 05/03/19 08:38 Resp 16 05/03/19 08:00 BP 137/69 05/03/19 08:38 Pulse Ox 96 05/03/19 06:34 Intake & Output 05/02/19 05/03/19 05/03/19 18:59 06:59 18:59 Intake Total 900 120 Balance 900 120 Intake: Oral 900 120 Other: # Voids 3 3 # Bowel Movements 1 Active Medications: Current Medications Acetaminophen (Tylenol) 650 mg PO Q6H PRN PRN Reason: Mild Pain/Headache/T above 101 Stop: 06/23/19 18:45 Last Admin: 05/03/19 02:39 Dose: 650 mg Al Hydrox/Mg Hydrox/Simethicone (Maalox) 30 ml PO Q6H PRN PRN Reason: Dyspepsia Stop: 06/23/19 18:45 Last Admin: 05/01/19 18:08 Dose: 30 ml Aspirin (Ecotrin) 81 mg PO DAILY [facility] Stop: 06/23/19 08:59 Last Admin: 05/03/19 08:35 Dose: 81 mg Atorvastatin Calcium (Lipitor) 40 mg PO DAILY [facility] Stop: 06/23/19 08:59 Last Admin: 05/03/19 08:35 Dose: 40 mg Benazepril HCl (Lotensin) 20 mg PO BID [facility] Stop: 06/24/19 16:59 Last Admin: 05/03/19 08:37 Dose: 20 mg Clonidine HCl (Nkgzxsgc-Fbq-3) 1 patch TD QFRI@1000 [facility] Stop: 06/26/19 09:59 Last Admin: 04/27/19 09:02 Dose: 1 patch Dextrose (Glutose 40%) 18.75 gm PO PRN PRN PRN Reason: BS Below 70 if tolerate po Stop: 06/23/19 18:45 Divalproex Sodium (Depakote Sprinkle) 125 mg PO BID [facility]; Protocol Stop: 06/23/19 08:59 Last Admin: 05/03/19 08:35 Dose: 125 mg Glipizide (Glucotrol) 10 mg PO BIDWM [facility] Stop: 06/23/19 07:59 Last Admin: 05/03/19 08:37 Dose: 10 mg Glucagon (Glucagen) 1 mg IM PRN PRN PRN Reason: BS Below 70 if not tolerate po Stop: 06/23/19 18:45 Hydralazine HCl (Apresoline) 25 mg PO DAILY [facility] Stop: 06/23/19 08:59 Last Admin: 05/03/19 08:38 Dose: 25 mg Insulin Human Lispro (Humalog Insulin Sliding Scale) 0 units SUBQ ACHS [facility]; Protocol Stop: 06/23/19 20:59 Last Admin: 05/02/19 20:22 Dose: Not Given Lorazepam (Ativan) 0.5 mg PO Q4HR PRN; Protocol PRN Reason: Anxiety Stop: 05/23/19 22:48 Last Admin: 05/02/19 15:21 Dose: 0.5 mg Magnesium Hydroxide (Milk Of Magnesia) 30 ml PO HS PRN PRN Reason: Constipation Stop: 06/23/19 18:45 Ondansetron HCl (Zofran Odt) 4 mg PO Q6H PRN PRN Reason: Nausea / Vomiting Stop: 06/23/19 18:45 Last Admin: 04/30/19 13:08 Dose: 4 mg Patient Own Med- Jardiance ( Empagliflozin) 25mg Tab 1 PO DAILY [facility] Stop: 06/24/19 08:59 Last Admin: 05/03/19 08:56 Dose: 1 Risperidone (Risperdal) 0.5 mg PO BID [facility]; Protocol Stop: 06/24/19 08:59 Last Admin: 05/03/19 08:35 Dose: 0.5 mg Spironolactone (Aldactone) 25 mg PO DAILY [facility] Stop: 06/25/19 08:59 Last Admin: 05/03/19 08:36 Dose: 25 mg Trazodone HCl (Desyrel) 100 mg PO HS [facility]; Protocol Stop: 06/29/19 20:59 Last Admin: 05/02/19 20:20 Dose: 100 mg General: Alert, No acute distress HEENT: no Atraumatic, no PERRLA, no 6, no EOMI, no 7, no Mucous membr. moist/ pink, no Other, no 8, no 9, no 10, no 11, no 12, no 13, no 14, no 15, no 16, no 22, no 17, no 23, no 18, no 24, no 19, no 20, no 21 Neck: no Supple, no JVD, no Thyromegaly, no +2 carotid pulse wo bruit, no LAD, no Other Cardiovascular: no Regular rate, no Normal S1, no Normal S2, no Systolic murmurs , no Gallops, no Rubs, no Other Lungs: Clear to auscultation, Normal air movement Abdomen: Bowel sounds, Soft Extremities: no Clubbing, no Cyanosis, no Edema, no Pulses, no Tender, no Other Neurological: no Normal gait, no Normal speech, no 9, no Strength at 5/5 X4 ext , no Normal tone, no Sensation intact, no Cranial nerves 3-12 NL, no Reflexes 2+ , no 10, no Other, no 11 Skin: no Rash, no Breakdown, no Significant lesion, no Other Assessment/Plan - Assessment Assessment: Leukocytosis Unspecified psychosis Vascular Dementia (moderate-severe) Hypertension Diabetes Mellitus H/O CVA S/P hysterectomy S/P endarterectomy S/P hand surgery - Plan Plan: * Continue current medications * Continue current treatment * Awaiting lab results * Will order labs for tomorrow * Awaiting culture results * Further per psychiatry Nutritional Asmnt/Malnutr-PDOC - Dietary Evaluation Malnutrition Findings (Please click <Entered> for more info): Nutritional Asmnt/Malnutrition Start: 04/24/19 14: 32 Text: Status: Complete Freq: Protocol: Document 04/24/19 14:33 LUIS (Rec: 04/24/19 14:36 LUIS [email or web address]) Nutritional Asmnt/Malnutrition Patient General Information Nutritional Screening High Risk Diagnosis Psychosis Pertinent Medical Hx/Surgical Hx CVA, CAD, DM, HTN, Anemia, UTI Subjective Information Pt is a 74-year-old female admitted on 04/23, transferred from [facility]. Pt is high risk d/t BMI 16.0, underweight. Took down pt foods that are not tolerated well, noted in Computrition. Visited pt, pt was outside room in Dia chair awake and looking around. Pt did not answer questions, did not seem to comprehend. Upon visual inspection, pt did not have clear signs of malnutrition or fat/muscle wasting. Pt was wearing a sweatshirt and headband, so I could not see her temples or clavicle, but eye sockets and cheeks were normal. Talked to charge nurse pertaining to a weight check as pt appeared to weigh more than noted 102 pounds. Nurse Darrick stated pt ate well this morning and lunch time. Will continue to monitor PO intake and weight check. Will downgrade pt to moderate risk and reassess when current weight is available. Anthropometrics HT: 57 WT: 102 LB (46.36 kg) BMI: 16.0 (Underweight) GI/ Skin Integrity GI: WNL BM: 04/24 x1 I/O: 60/Not Noted Skin: WNL Andres: 18 Diet Order: Cardiac, NCS, 2gm Na Allergy: Lactose Estimated Energy Needs: ( Underweight, CBW) 0969-1973 kcals (30-35 kcals/ kg) 46-56g Pro (1.0-1.2 g/kg) 0735-4805 ml (30-40 ml/kg) Current Diet Order/ Nutrition Support Cardiac, NCS, 2gm Na Pertinent Medications Lipitor, Glucotrol Pertinent Labs 04/20: Hgb/Hct 8.0/23.6, Glucose 101, Mg 2.3, T Pro 5.9 , Alb 2.9, CRP 3.4 Nutritional Hx/Data Height 1.7 m Height (Calculated Centimeters) 170.2 Current Weight (lbs) 46.266 kg Weight (Calculated Kilograms) 46.3 Weight (Calculated Grams) 39861.4 [place] Body Weight 135 LB (61.36 kg) % [place] Body Weight 76 Body Mass Index (BMI) 16.0 Weight Status Underweight GI Symptoms GI Symptoms None Last BM 04/24 x1 Skin Integrity/Comment: Skin: WNL Andres: 18 Current %PO Fair (50-74%) Estimated Nutritional Goals BEE in Kcals: Using Current wt Calories/Kcals/Kg 30-35 Kcals Calculated 1513-9144 Protein: Using Current wt Protein g/k.0-1.2 Protein Calculated 46-56 Fluid: ml 1299-9797 ml (30-40 ml/kg) Nutritional Problem 1. Problem Problem Underweight Etiology r/t consistent inadequate energy intake Signs/Symptoms: aeb BMI 16.0 (recommending weight check). Malnutrition Related to Morbid Obesity Malnutrition related to morbid obesity No Intervention/Recommendation Comments 1. Continue with Cardiac, NCS, 2gm Na diet as ordered. 2. Record pt foods which are not tolerated well (completed) . 3. Recommend current weight check. Expected Outcomes/Goals Expected Outcomes/Goals 1. PO intake to meet 75% of nutritional needs. 2. Monitor PO intake, wt, nutrition related labs, and skin integrity. 3. F/U as moderate risk in 3-5 days, 04/27-04/29
[2019-05-03] MEDS: INSULIN LISPRO SLIDING SCALE 100 UNITS/ML UNIT SUBQ SCH ×3 (11:50→21:30)
[2019-05-04] MEDS: INSULIN LISPRO SLIDING SCALE 100 UNITS/ML UNIT SUBQ SCH ×4 (06:53→20:09)
[2019-05-04] MEDS: JARDIANCE 25 MG PO SCH (09:35)
[2019-05-04] MEDS: cloNIDine 0.2 mg/24 hr Tdm TD SCH (09:38)
--- NOTE | 2019-05-04 17:28 | General Progress Note ---
Subjective - Review of Systems Service Date: 05/04/19 Subjective: * Patient is in Geropsych unit * Patient is awake * Patient is still confused * Awaiting lab results Objective - Results Recent Labs: Laboratory Last Values POC Glucose 91 MG/DL (70 - 105) 05/01/19 11:53 - Physical Exam Vitals and I&O: Vital Signs Temp 97.6 F 05/04/19 14:00 Pulse 104 05/04/19 14:00 Resp 20 05/04/19 14:00 BP 109/50 05/04/19 16:52 Pulse Ox 98 05/04/19 14:00 Intake & Output 05/03/19 05/04/19 05/04/19 18:59 06:59 18:59 Intake Total 120 Balance 120 Intake: Oral 120 Other: # Voids 3 Active Medications: Current Medications Acetaminophen (Tylenol) 650 mg PO Q6H PRN PRN Reason: Mild Pain/Headache/T above 101 Stop: 06/23/19 18:45 Last Admin: 05/03/19 02:39 Dose: 650 mg Al Hydrox/Mg Hydrox/Simethicone (Maalox) 30 ml PO Q6H PRN PRN Reason: Dyspepsia Stop: 06/23/19 18:45 Last Admin: 05/01/19 18:08 Dose: 30 ml Aspirin (Ecotrin) 81 mg PO DAILY [facility] Stop: 06/23/19 08:59 Last Admin: 05/04/19 09:36 Dose: 81 mg Atorvastatin Calcium (Lipitor) 40 mg PO DAILY [facility] Stop: 06/23/19 08:59 Last Admin: 05/04/19 09:38 Dose: 40 mg Benazepril HCl (Lotensin) 20 mg PO BID [facility] Stop: 06/24/19 16:59 Last Admin: 05/04/19 16:52 Dose: Not Given Clonidine HCl (Wzolqxig-Ebw-5) 1 patch TD QFRI@1000 [facility] Stop: 06/26/19 09:59 Last Admin: 05/04/19 09:38 Dose: 1 patch Dextrose (Glutose 40%) 18.75 gm PO PRN PRN PRN Reason: BS Below 70 if tolerate po Stop: 06/23/19 18:45 Divalproex Sodium (Depakote Sprinkle) 125 mg PO BID [facility]; Protocol Stop: 06/23/19 08:59 Last Admin: 05/04/19 16:52 Dose: 125 mg Glipizide (Glucotrol) 10 mg PO BIDWM [facility] Stop: 06/23/19 07:59 Last Admin: 05/04/19 17:05 Dose: Not Given Glucagon (Glucagen) 1 mg IM PRN PRN PRN Reason: BS Below 70 if not tolerate po Stop: 06/23/19 18:45 Hydralazine HCl (Apresoline) 25 mg PO DAILY [facility] Stop: 06/23/19 08:59 Last Admin: 05/04/19 09:36 Dose: 25 mg Insulin Human Lispro (Humalog Insulin Sliding Scale) 0 units SUBQ ACHS [facility]; Protocol Stop: 06/23/19 20:59 Last Admin: 05/04/19 16:48 Dose: Not Given Lorazepam (Ativan) 0.5 mg PO Q4HR PRN; Protocol PRN Reason: Anxiety Stop: 05/23/19 22:48 Last Admin: 05/04/19 13:15 Dose: 0.5 mg Magnesium Hydroxide (Milk Of Magnesia) 30 ml PO HS PRN PRN Reason: Constipation Stop: 06/23/19 18:45 Ondansetron HCl (Zofran Odt) 4 mg PO Q6H PRN PRN Reason: Nausea / Vomiting Stop: 06/23/19 18:45 Last Admin: 04/30/19 13:08 Dose: 4 mg Patient Own Med- Jardiance ( Empagliflozin) 25mg Tab 1 PO DAILY [facility] Stop: 06/24/19 08:59 Last Admin: 05/04/19 09:35 Dose: 1 Risperidone (Risperdal) 0.5 mg PO BID [facility]; Protocol Stop: 06/24/19 08:59 Last Admin: 05/04/19 16:52 Dose: 0.5 mg Spironolactone (Aldactone) 25 mg PO DAILY [facility] Stop: 06/25/19 08:59 Last Admin: 05/04/19 09:35 Dose: 25 mg Trazodone HCl (Desyrel) 100 mg PO HS [facility]; Protocol Stop: 06/29/19 20:59 Last Admin: 05/03/19 21:08 Dose: 100 mg General: No acute distress HEENT: no Atraumatic, no PERRLA, no 6, no EOMI, no 7, no Mucous membr. moist/ pink, no Other, no 8, no 9, no 10, no 11, no 12, no 13, no 14, no 15, no 16, no 22, no 17, no 23, no 18, no 24, no 19, no 20, no 21 Neck: no Supple, no JVD, no Thyromegaly, no +2 carotid pulse wo bruit, no LAD, no Other Cardiovascular: no Regular rate, no Normal S1, no Normal S2, no Systolic murmurs , no Gallops, no Rubs, no Other Lungs: Clear to auscultation, Normal air movement Abdomen: Bowel sounds, Soft Extremities: no Clubbing, no Cyanosis, no Edema, no Pulses, no Tender, no Other Neurological: no Normal gait, no Normal speech, no 9, no Strength at 5/5 X4 ext , no Normal tone, no Sensation intact, no Cranial nerves 3-12 NL, no Reflexes 2+ , no 10, no Other, no 11 Skin: no Rash, no Breakdown, no Significant lesion, no Other Assessment/Plan - Assessment Assessment: Leukocytosis Unspecified psychosis Vascular Dementia (moderate-severe) Hypertension Diabetes Mellitus H/O CVA S/P hysterectomy S/P endarterectomy S/P hand surgery - Plan Plan: * Continue current medications * Continue current treatment * Awaiting lab results * Will order labs on Tuesday * Awaiting culture results * Further per psychiatry Nutritional Asmnt/Malnutr-PDOC - Dietary Evaluation Malnutrition Findings (Please click <Entered> for more info): Nutritional Asmnt/Malnutrition Start: 04/24/19 14: 32 Text: Status: Complete Freq: Protocol: Document 04/24/19 14:33 LUIS (Rec: 04/24/19 14:36 LUIS [email or web address]) Nutritional Asmnt/Malnutrition Patient General Information Nutritional Screening High Risk Diagnosis Psychosis Pertinent Medical Hx/Surgical Hx CVA, CAD, DM, HTN, Anemia, UTI Subjective Information Pt is a 74-year-old female admitted on 04/23, transferred from [facility]. Pt is high risk d/t BMI 16.0, underweight. Took down pt foods that are not tolerated well, noted in Computrition. Visited pt, pt was outside room in Dia chair awake and looking around. Pt did not answer questions, did not seem to comprehend. Upon visual inspection, pt did not have clear signs of malnutrition or fat/muscle wasting. Pt was wearing a sweatshirt and headband, so I could not see her temples or clavicle, but eye sockets and cheeks were normal. Talked to charge nurse pertaining to a weight check as pt appeared to weigh more than noted 102 pounds. Nurse Darrick stated pt ate well this morning and lunch time. Will continue to monitor PO intake and weight check. Will downgrade pt to moderate risk and reassess when current weight is available. Anthropometrics HT: 57 WT: 102 LB (46.36 kg) BMI: 16.0 (Underweight) GI/ Skin Integrity GI: WNL BM: 04/24 x1 I/O: 60/Not Noted Skin: WNL Andres: 18 Diet Order: Cardiac, NCS, 2gm Na Allergy: Lactose Estimated Energy Needs: ( Underweight, CBW) 0247-8501 kcals (30-35 kcals/ kg) 46-56g Pro (1.0-1.2 g/kg) 6312-2218 ml (30-40 ml/kg) Current Diet Order/ Nutrition Support Cardiac, NCS, 2gm Na Pertinent Medications Lipitor, Glucotrol Pertinent Labs 04/20: Hgb/Hct 8.0/23.6, Glucose 101, Mg 2.3, T Pro 5.9 , Alb 2.9, CRP 3.4 Nutritional Hx/Data Height 1.7 m Height (Calculated Centimeters) 170.2 Current Weight (lbs) 46.266 kg Weight (Calculated Kilograms) 46.3 Weight (Calculated Grams) 37275.4 [place] Body Weight 135 LB (61.36 kg) % [place] Body Weight 76 Body Mass Index (BMI) 16.0 Weight Status Underweight GI Symptoms GI Symptoms None Last BM 04/24 x1 Skin Integrity/Comment: Skin: WNL Andres: 18 Current %PO Fair (50-74%) Estimated Nutritional Goals BEE in Kcals: Using Current wt Calories/Kcals/Kg 30-35 Kcals Calculated 9687-8385 Protein: Using Current wt Protein g/k.0-1.2 Protein Calculated 46-56 Fluid: ml 6161-3513 ml (30-40 ml/kg) Nutritional Problem 1. Problem Problem Underweight Etiology r/t consistent inadequate energy intake Signs/Symptoms: aeb BMI 16.0 (recommending weight check). Malnutrition Related to Morbid Obesity Malnutrition related to morbid obesity No Intervention/Recommendation Comments 1. Continue with Cardiac, NCS, 2gm Na diet as ordered. 2. Record pt foods which are not tolerated well (completed) . 3. Recommend current weight check. Expected Outcomes/Goals Expected Outcomes/Goals 1. PO intake to meet 75% of nutritional needs. 2. Monitor PO intake, wt, nutrition related labs, and skin integrity. 3. F/U as moderate risk in 3-5 days, 04/27-04/29
[2019-05-05] MEDS: INSULIN LISPRO SLIDING SCALE 100 UNITS/ML UNIT SUBQ SCH ×4 (06:42→20:52)
[2019-05-05] MEDS: JARDIANCE 25 MG PO SCH (08:15)
--- NOTE | 2019-05-05 16:20 | General Progress Note ---
Subjective - Review of Systems Service Date: 05/05/19 Subjective: * Patient is in Geropsych unit * Patient is awake * Patient is still confused * Awaiting lab results Objective - Results Recent Labs: Laboratory Last Values POC Glucose 91 MG/DL (70 - 105) 05/01/19 11:53 - Physical Exam Vitals and I&O: Vital Signs Temp 98.0 F 05/05/19 14:00 Pulse 113 05/05/19 14:00 Resp 20 05/05/19 14:00 BP 116/65 05/05/19 14:00 Pulse Ox 96 05/05/19 14:00 Intake & Output 05/04/19 05/05/19 05/05/19 18:59 06:59 18:59 Intake Total 960 240 Balance 960 240 Intake: Oral 960 240 Other: # Voids 4 2 # Bowel Movements 1 Active Medications: Current Medications Acetaminophen (Tylenol) 650 mg PO Q6H PRN PRN Reason: Mild Pain/Headache/T above 101 Stop: 06/23/19 18:45 Last Admin: 05/04/19 17:53 Dose: 650 mg Al Hydrox/Mg Hydrox/Simethicone (Maalox) 30 ml PO Q6H PRN PRN Reason: Dyspepsia Stop: 06/23/19 18:45 Last Admin: 05/01/19 18:08 Dose: 30 ml Aspirin (Ecotrin) 81 mg PO DAILY [facility] Stop: 06/23/19 08:59 Last Admin: 05/05/19 08:19 Dose: 81 mg Atorvastatin Calcium (Lipitor) 40 mg PO DAILY [facility] Stop: 06/23/19 08:59 Last Admin: 05/05/19 08:21 Dose: 40 mg Benazepril HCl (Lotensin) 20 mg PO BID [facility] Stop: 06/24/19 16:59 Last Admin: 05/05/19 08:19 Dose: 20 mg Clonidine HCl (Llganlrq-Mld-7) 1 patch TD QFRI@1000 [facility] Stop: 06/26/19 09:59 Last Admin: 05/04/19 09:38 Dose: 1 patch Dextrose (Glutose 40%) 18.75 gm PO PRN PRN PRN Reason: BS Below 70 if tolerate po Stop: 06/23/19 18:45 Divalproex Sodium (Depakote Sprinkle) 125 mg PO BID [facility]; Protocol Stop: 06/23/19 08:59 Last Admin: 05/05/19 08:15 Dose: 125 mg Glipizide (Glucotrol) 10 mg PO BIDWM [facility] Stop: 06/23/19 07:59 Last Admin: 05/05/19 08:21 Dose: 10 mg Glucagon (Glucagen) 1 mg IM PRN PRN PRN Reason: BS Below 70 if not tolerate po Stop: 06/23/19 18:45 Hydralazine HCl (Apresoline) 25 mg PO DAILY [facility] Stop: 06/23/19 08:59 Last Admin: 05/05/19 08:20 Dose: 25 mg Insulin Human Lispro (Humalog Insulin Sliding Scale) 0 units SUBQ ACHS [facility]; Protocol Stop: 06/23/19 20:59 Last Admin: 05/05/19 11:37 Dose: Not Given Lorazepam (Ativan) 0.5 mg PO Q4HR PRN; Protocol PRN Reason: Anxiety Stop: 05/23/19 22:48 Last Admin: 05/05/19 03:05 Dose: 0.5 mg Magnesium Hydroxide (Milk Of Magnesia) 30 ml PO HS PRN PRN Reason: Constipation Stop: 06/23/19 18:45 Ondansetron HCl (Zofran Odt) 4 mg PO Q6H PRN PRN Reason: Nausea / Vomiting Stop: 06/23/19 18:45 Last Admin: 04/30/19 13:08 Dose: 4 mg Patient Own Med- Jardiance ( Empagliflozin) 25mg Tab 1 PO DAILY [facility] Stop: 06/24/19 08:59 Last Admin: 05/05/19 08:15 Dose: 1 Risperidone (Risperdal) 0.5 mg PO BID [facility]; Protocol Stop: 06/24/19 08:59 Last Admin: 05/05/19 08:16 Dose: 0.5 mg Spironolactone (Aldactone) 25 mg PO DAILY [facility] Stop: 06/25/19 08:59 Last Admin: 05/05/19 08:20 Dose: 25 mg Trazodone HCl (Desyrel) 100 mg PO HS [facility]; Protocol Stop: 06/29/19 20:59 Last Admin: 05/04/19 21:03 Dose: 100 mg General: No acute distress HEENT: no Atraumatic, no PERRLA, no 6, no EOMI, no 7, no Mucous membr. moist/ pink, no Other, no 8, no 9, no 10, no 11, no 12, no 13, no 14, no 15, no 16, no 22, no 17, no 23, no 18, no 24, no 19, no 20, no 21 Neck: no Supple, no JVD, no Thyromegaly, no +2 carotid pulse wo bruit, no LAD, no Other Cardiovascular: no Regular rate, no Normal S1, no Normal S2, no Systolic murmurs , no Gallops, no Rubs, no Other Lungs: Clear to auscultation, Normal air movement Abdomen: Bowel sounds, Soft Extremities: no Clubbing, no Cyanosis, no Edema, no Pulses, no Tender, no Other Neurological: no Normal gait, no Normal speech, no 9, no Strength at 5/5 X4 ext , no Normal tone, no Sensation intact, no Cranial nerves 3-12 NL, no Reflexes 2+ , no 10, no Other, no 11 Skin: no Rash, no Breakdown, no Significant lesion, no Other Assessment/Plan - Assessment Assessment: Leukocytosis Unspecified psychosis Vascular Dementia (moderate-severe) Hypertension Diabetes Mellitus H/O CVA S/P hysterectomy S/P endarterectomy S/P hand surgery - Plan Plan: * Continue current medications * Continue current treatment * Awaiting lab results * Will order labs on Tuesday * Awaiting culture results * Further per psychiatry Nutritional Asmnt/Malnutr-PDOC - Dietary Evaluation Malnutrition Findings (Please click <Entered> for more info): Nutritional Asmnt/Malnutrition Start: 04/24/19 14: 32 Text: Status: Complete Freq: Protocol: Document 04/24/19 14:33 LUIS (Rec: 04/24/19 14:36 LUIS [email or web address]) Nutritional Asmnt/Malnutrition Patient General Information Nutritional Screening High Risk Diagnosis Psychosis Pertinent Medical Hx/Surgical Hx CVA, CAD, DM, HTN, Anemia, UTI Subjective Information Pt is a 74-year-old female admitted on 04/23, [place] [facility] [place]. Pt is high risk d/t BMI 16.0, underweight. Took down pt foods that are not tolerated well, noted in Computrition. Visited pt, pt was outside room in Dia chair awake and looking around. Pt did not answer questions, did not seem to comprehend. Upon visual inspection, pt did not have clear signs of malnutrition or fat/muscle wasting. Pt was wearing a sweatshirt and headband, so I could not see her temples or clavicle, but eye sockets and cheeks were normal. Talked to charge nurse pertaining to a weight check as pt appeared to weigh more than noted 102 pounds. Nurse Darrick stated pt ate well this morning and lunch time. Will continue to monitor PO intake and weight check. Will downgrade pt to moderate risk and reassess when current weight is available. Anthropometrics HT: 57 WT: 102 LB (46.36 kg) BMI: 16.0 (Underweight) GI/ Skin Integrity GI: WNL BM: 04/24 x1 I/O: 60/Not Noted Skin: WNL Andres: 18 Diet Order: Cardiac, NCS, 2gm Na Allergy: Lactose Estimated Energy Needs: ( Underweight, CBW) 9880-8781 kcals (30-35 kcals/ kg) 46-56g Pro (1.0-1.2 g/kg) 3885-8378 ml (30-40 ml/kg) Current Diet Order/ Nutrition Support Cardiac, NCS, 2gm Na Pertinent Medications Lipitor, Glucotrol Pertinent Labs 04/20: Hgb/Hct 8.0/23.6, Glucose 101, Mg 2.3, T Pro 5.9 , Alb 2.9, CRP 3.4 Nutritional Hx/Data Height 1.7 m Height (Calculated Centimeters) 170.2 Current Weight (lbs) 46.266 kg Weight (Calculated Kilograms) 46.3 Weight (Calculated Grams) 94948.4 [place] Body Weight 135 LB (61.36 kg) % [place] Body Weight 76 Body Mass Index (BMI) 16.0 Weight Status Underweight GI Symptoms GI Symptoms None Last BM 04/24 x1 Skin Integrity/Comment: Skin: WNL Andres: 18 Current %PO Fair (50-74%) Estimated Nutritional Goals BEE in Kcals: Using Current wt Calories/Kcals/Kg 30-35 Kcals Calculated 0659-5364 Protein: Using Current wt Protein g/k.0-1.2 Protein Calculated 46-56 Fluid: ml 2166-2245 ml (30-40 ml/kg) Nutritional Problem 1. Problem Problem Underweight Etiology r/t consistent inadequate energy intake Signs/Symptoms: aeb BMI 16.0 (recommending weight check). Malnutrition Related to Morbid Obesity Malnutrition related to morbid obesity No Intervention/Recommendation Comments 1. Continue with Cardiac, NCS, 2gm Na diet as ordered. 2. Record pt foods which are not tolerated well (completed) . 3. Recommend current weight check. Expected Outcomes/Goals Expected Outcomes/Goals 1. PO intake to meet 75% of nutritional needs. 2. Monitor PO intake, wt, nutrition related labs, and skin integrity. 3. F/U as moderate risk in 3-5 days, 04/27-04/29
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
[2019-05-06] MEDS: INSULIN LISPRO SLIDING SCALE 100 UNITS/ML UNIT SUBQ SCH ×4 (07:02→21:13)
[2019-05-06] MEDS: JARDIANCE 25 MG PO SCH (09:00)
--- NOTE | 2019-05-06 19:05 | General Progress Note ---
Subjective - Review of Systems Service Date: 05/06/19 Subjective: * Patient is in Geropsych unit * Patient is awake * Patient is still confused and agitated * Awaiting lab results Objective - Results Recent Labs: Laboratory Last Values POC Glucose 91 MG/DL (70 - 105) 05/01/19 11:53 - Physical Exam Vitals and I&O: Vital Signs Temp 98.4 F 05/06/19 15:12 Pulse 96 05/06/19 17:10 Resp 20 05/06/19 15:12 BP 140/66 05/06/19 17:10 Pulse Ox 95 05/06/19 15:12 Intake & Output 05/06/19 05/06/19 05/07/19 06:59 18:59 06:59 Intake Total 1969 850 Balance 1969 850 Intake: Oral 1610 850 Other 360 Other: # Voids 1 3 # Bowel Movements 0 1 Active Medications: Current Medications Acetaminophen (Tylenol) 650 mg PO Q6H PRN PRN Reason: Mild Pain/Headache/T above 101 Stop: 06/23/19 18:45 Last Admin: 05/06/19 17:09 Dose: 650 mg Al Hydrox/Mg Hydrox/Simethicone (Maalox) 30 ml PO Q6H PRN PRN Reason: Dyspepsia Stop: 06/23/19 18:45 Last Admin: 05/01/19 18:08 Dose: 30 ml Aspirin (Ecotrin) 81 mg PO DAILY [facility] Stop: 06/23/19 08:59 Last Admin: 05/06/19 09:17 Dose: 81 mg Atorvastatin Calcium (Lipitor) 40 mg PO DAILY [facility] Stop: 06/23/19 08:59 Last Admin: 05/06/19 09:15 Dose: 40 mg Benazepril HCl (Lotensin) 20 mg PO BID [facility] Stop: 06/24/19 16:59 Last Admin: 05/06/19 17:10 Dose: 20 mg Clonidine HCl (Fiphaxfr-Kpu-3) 1 patch TD QFRI@1000 [facility] Stop: 06/26/19 09:59 Last Admin: 05/04/19 09:38 Dose: 1 patch Dextrose (Glutose 40%) 18.75 gm PO PRN PRN PRN Reason: BS Below 70 if tolerate po Stop: 06/23/19 18:45 Divalproex Sodium (Depakote Sprinkle) 125 mg PO BID [facility]; Protocol Stop: 06/23/19 08:59 Last Admin: 05/06/19 17:13 Dose: 125 mg Glipizide (Glucotrol) 10 mg PO BIDWM [facility] Stop: 06/23/19 07:59 Last Admin: 05/06/19 08:00 Dose: Not Given Glucagon (Glucagen) 1 mg IM PRN PRN PRN Reason: BS Below 70 if not tolerate po Stop: 06/23/19 18:45 Hydralazine HCl (Apresoline) 25 mg PO DAILY [facility] Stop: 06/23/19 08:59 Last Admin: 05/06/19 09:18 Dose: 25 mg Insulin Human Lispro (Humalog Insulin Sliding Scale) 0 units SUBQ ACHS [facility]; Protocol Stop: 06/23/19 20:59 Last Admin: 05/06/19 17:09 Dose: Not Given Lorazepam (Ativan) 0.5 mg PO Q4HR PRN; Protocol PRN Reason: Anxiety Stop: 05/23/19 22:48 Last Admin: 05/06/19 17:12 Dose: 0.5 mg Magnesium Hydroxide (Milk Of Magnesia) 30 ml PO HS PRN PRN Reason: Constipation Stop: 06/23/19 18:45 Ondansetron HCl (Zofran Odt) 4 mg PO Q6H PRN PRN Reason: Nausea / Vomiting Stop: 06/23/19 18:45 Last Admin: 04/30/19 13:08 Dose: 4 mg Patient Own Med- Jardiance ( Empagliflozin) 25mg Tab 1 PO DAILY [facility] Stop: 06/24/19 08:59 Last Admin: 05/06/19 09:00 Dose: 1 Risperidone (Risperdal) 0.5 mg PO BID [facility]; Protocol Stop: 06/24/19 08:59 Last Admin: 05/06/19 17:12 Dose: 0.5 mg Spironolactone (Aldactone) 25 mg PO DAILY [facility] Stop: 06/25/19 08:59 Last Admin: 05/06/19 09:17 Dose: 25 mg Trazodone HCl (Desyrel) 100 mg PO HS [facility]; Protocol Stop: 06/29/19 20:59 Last Admin: 05/05/19 20:47 Dose: 100 mg General: No acute distress HEENT: no Atraumatic, no PERRLA, no 6, no EOMI, no 7, no Mucous membr. moist/ pink, no Other, no 8, no 9, no 10, no 11, no 12, no 13, no 14, no 15, no 16, no 22, no 17, no 23, no 18, no 24, no 19, no 20, no 21 Neck: no Supple, no JVD, no Thyromegaly, no +2 carotid pulse wo bruit, no LAD, no Other Cardiovascular: no Regular rate, no Normal S1, no Normal S2, no Systolic murmurs , no Gallops, no Rubs, no Other Lungs: Clear to auscultation, Normal air movement Abdomen: Bowel sounds, Soft Extremities: no Clubbing, no Cyanosis, no Edema, no Pulses, no Tender, no Other Neurological: no Normal gait, no Normal speech, no 9, no Strength at 5/5 X4 ext , no Normal tone, no Sensation intact, no Cranial nerves 3-12 NL, no Reflexes 2+ , no 10, no Other, no 11 Skin: no Rash, no Breakdown, no Significant lesion, no Other Assessment/Plan - Assessment Assessment: Leukocytosis Unspecified psychosis Vascular Dementia (moderate-severe) Hypertension Diabetes Mellitus H/O CVA S/P hysterectomy S/P endarterectomy S/P hand surgery - Plan Plan: * Continue current medications * Continue current treatment * Awaiting lab results * Will order labs on Tuesday * Awaiting culture results * Further per psychiatry Nutritional Asmnt/Malnutr-PDOC - Dietary Evaluation Malnutrition Findings (Please click <Entered> for more info): Nutritional Asmnt/Malnutrition Start: 04/24/19 14: 32 Text: Status: Complete Freq: Protocol: Document 04/24/19 14:33 LUIS (Rec: 04/24/19 14:36 LUIS [email or web address]) Nutritional Asmnt/Malnutrition Patient General Information Nutritional Screening High Risk Diagnosis Psychosis Pertinent Medical Hx/Surgical Hx CVA, CAD, DM, HTN, Anemia, UTI Subjective Information Pt is a 74-year-old female admitted on 04/23, transferred from [facility]. Pt is high risk d/t BMI 16.0, underweight. Took down pt foods that are not tolerated well, noted in Computrition. Visited pt, pt was outside room in Dia chair awake and looking around. Pt did not answer questions, did not seem to comprehend. Upon visual inspection, pt did not have clear signs of malnutrition or fat/muscle wasting. Pt was wearing a sweatshirt and headband, so I could not see her temples or clavicle, but eye sockets and cheeks were normal. Talked to charge nurse pertaining to a weight check as pt appeared to weigh more than noted 102 pounds. Nurse Darrick stated pt ate well this morning and lunch time. Will continue to monitor PO intake and weight check. Will downgrade pt to moderate risk and reassess when current weight is available. Anthropometrics HT: 57 WT: 102 LB (46.36 kg) BMI: 16.0 (Underweight) GI/ Skin Integrity GI: WNL BM: 04/24 x1 I/O: 60/Not Noted Skin: WNL Andres: 18 Diet Order: Cardiac, NCS, 2gm Na Allergy: Lactose Estimated Energy Needs: ( Underweight, CBW) 7292-6917 kcals (30-35 kcals/ kg) 46-56g Pro (1.0-1.2 g/kg) 9840-4321 ml (30-40 ml/kg) Current Diet Order/ Nutrition Support Cardiac, NCS, 2gm Na Pertinent Medications Lipitor, Glucotrol Pertinent Labs 04/20: Hgb/Hct 8.0/23.6, Glucose 101, Mg 2.3, T Pro 5.9 , Alb 2.9, CRP 3.4 Nutritional Hx/Data Height 1.7 m Height (Calculated Centimeters) 170.2 Current Weight (lbs) 46.266 kg Weight (Calculated Kilograms) 46.3 Weight (Calculated Grams) 96637.4 [place] Body Weight 135 LB (61.36 kg) % [place] Body Weight 76 Body Mass Index (BMI) 16.0 Weight Status Underweight GI Symptoms GI Symptoms None Last BM 04/24 x1 Skin Integrity/Comment: Skin: WNL Andres: 18 Current %PO Fair (50-74%) Estimated Nutritional Goals BEE in Kcals: Using Current wt Calories/Kcals/Kg 30-35 Kcals Calculated 0122-8375 Protein: Using Current wt Protein g/k.0-1.2 Protein Calculated 46-56 Fluid: ml 0404-0259 ml (30-40 ml/kg) Nutritional Problem 1. Problem Problem Underweight Etiology r/t consistent inadequate energy intake Signs/Symptoms: aeb BMI 16.0 (recommending weight check). Malnutrition Related to Morbid Obesity Malnutrition related to morbid obesity No Intervention/Recommendation Comments 1. Continue with Cardiac, NCS, 2gm Na diet as ordered. 2. Record pt foods which are not tolerated well (completed) . 3. Recommend current weight check. Expected Outcomes/Goals Expected Outcomes/Goals 1. PO intake to meet 75% of nutritional needs. 2. Monitor PO intake, wt, nutrition related labs, and skin integrity. 3. F/U as moderate risk in 3-5 days, 04/27-04/29
--- NOTE | 2019-05-06 20:41 | Progress Notes ---
DATE: 05/06/2019 SUBJECTIVE: Case was discussed with staff of the patient, reviewed records. The patient is on wheelchair. Continues to be unpredictable, impulsive, easily agitated, continues to have poor insight. Continues to be paranoid, continues to need redirection. No side effects from the medication, no sedation, no nausea, and no extrapyramidal symptoms. We will continue outpatient group therapy, milieu therapy, and adjust her medication as needed. [facility]# [id number]
[2019-05-07] MEDS: INSULIN LISPRO SLIDING SCALE 100 UNITS/ML UNIT SUBQ SCH ×4 (06:57→20:53)
[2019-05-07] MEDS: JARDIANCE 25 MG PO SCH (08:59)
--- NOTE | 2019-05-07 15:52 | General Progress Note ---
Subjective - Review of Systems Service Date: 05/07/19 Subjective: * Patient is in Geropsych unit * Patient is awake * Patient is still confused and agitated * Awaiting lab results Objective - Results Recent Labs: Laboratory Last Values POC Glucose 91 MG/DL (70 - 105) 05/01/19 11:53 - Physical Exam Vitals and I&O: Vital Signs Temp 97.3 F 05/07/19 06:41 Pulse 64 05/07/19 08:58 Resp 17 05/07/19 08:00 BP 150/75 05/07/19 08:58 Pulse Ox 96 05/07/19 06:41 Intake & Output 05/06/19 05/07/19 05/07/19 18:59 06:59 18:59 Intake Total 850 Balance 850 Intake: Oral 850 Other: # Voids 3 # Bowel Movements 1 Active Medications: Current Medications Acetaminophen (Tylenol) 650 mg PO Q6H PRN PRN Reason: Mild Pain/Headache/T above 101 Stop: 06/23/19 18:45 Last Admin: 05/07/19 14:50 Dose: 650 mg Al Hydrox/Mg Hydrox/Simethicone (Maalox) 30 ml PO Q6H PRN PRN Reason: Dyspepsia Stop: 06/23/19 18:45 Last Admin: 05/01/19 18:08 Dose: 30 ml Aspirin (Ecotrin) 81 mg PO DAILY ON [facility] OF [facility] Stop: 06/23/19 08:59 Last Admin: 05/07/19 08:57 Dose: 81 mg Atorvastatin Calcium (Lipitor) 40 mg PO DAILY ON [facility] Stop: 06/23/19 08:59 Last Admin: 05/07/19 08:56 Dose: 40 mg Benazepril HCl (Lotensin) 20 mg PO BID ON [facility] Stop: 06/24/19 16:59 Last Admin: 05/07/19 08:57 Dose: 20 mg Clonidine HCl (Khbomked-Agp-0) 1 patch TD QFRI@1000 ON [facility] Stop: 06/26/19 09:59 Last Admin: 05/04/19 09:38 Dose: 1 patch Dextrose (Glutose 40%) 18.75 gm PO PRN PRN PRN Reason: BS Below 70 if tolerate po Stop: 06/23/19 18:45 Divalproex Sodium (Depakote Sprinkle) 125 mg PO BID ON LICENSE OF [facility]; Protocol Stop: 06/23/19 08:59 Last Admin: 05/07/19 08:59 Dose: 125 mg Glipizide (Glucotrol) 10 mg PO BIDWM HERB Stop: 06/23/19 07:59 Last Admin: 05/07/19 08:58 Dose: 10 mg Glucagon (Glucagen) 1 mg IM PRN PRN PRN Reason: BS Below 70 if not tolerate po Stop: 06/23/19 18:45 Hydralazine HCl (Apresoline) 25 mg PO DAILY HERB Stop: 06/23/19 08:59 Last Admin: 05/07/19 08:57 Dose: 25 mg Insulin Human Lispro (Humalog Insulin Sliding Scale) 0 units SUBQ ACHS ON LICENSE OF [facility]; Protocol Stop: 06/23/19 20:59 Last Admin: 05/07/19 11:35 Dose: Not Given Lorazepam (Ativan) 0.5 mg PO Q4HR PRN; Protocol PRN Reason: Anxiety Stop: 05/23/19 22:48 Last Admin: 05/06/19 21:18 Dose: 0.5 mg Magnesium Hydroxide (Milk Of Magnesia) 30 ml PO HS PRN PRN Reason: Constipation Stop: 06/23/19 18:45 Ondansetron HCl (Zofran Odt) 4 mg PO Q6H PRN PRN Reason: Nausea / Vomiting Stop: 06/23/19 18:45 Last Admin: 04/30/19 13:08 Dose: 4 mg Patient Own Med- Jardiance ( Empagliflozin) 25mg Tab 1 PO DAILY ON [facility] Stop: 06/24/19 08:59 Last Admin: 05/07/19 08:59 Dose: 1 Risperidone (Risperdal) 0.5 mg PO DAILY ON LICENSE OF [facility]; Protocol Stop: 07/07/19 08:59 Risperidone (Risperdal) 0.25 mg PO QPM ON LICENSE OF [facility]; Protocol Stop: 07/07/19 16:59 Spironolactone (Aldactone) 25 mg PO DAILY ON [facility] Stop: 06/25/19 08:59 Last Admin: 05/07/19 08:58 Dose: 25 mg Trazodone HCl (Desyrel) 100 mg PO HS ON LICENSE OF [facility]; Protocol Stop: 06/29/19 20:59 Last Admin: 05/06/19 21:12 Dose: 100 mg General: No acute distress HEENT: no Atraumatic, no PERRLA, no 6, no EOMI, no 7, no Mucous membr. moist/ pink, no Other, no 8, no 9, no 10, no 11, no 12, no 13, no 14, no 15, no 16, no 22, no 17, no 23, no 18, no 24, no 19, no 20, no 21 Neck: no Supple, no JVD, no Thyromegaly, no +2 carotid pulse wo bruit, no LAD, no Other Cardiovascular: no Regular rate, no Normal S1, no Normal S2, no Systolic murmurs , no Gallops, no Rubs, no Other Lungs: Clear to auscultation, Normal air movement Abdomen: Bowel sounds, Soft Extremities: no Clubbing, no Cyanosis, no Edema, no Pulses, no Tender, no Other Neurological: no Normal gait, no Normal speech, no 9, no Strength at 5/5 X4 ext , no Normal tone, no Sensation intact, no Cranial nerves 3-12 NL, no Reflexes 2+ , no 10, no Other, no 11 Skin: no Rash, no Breakdown, no Significant lesion, no Other Assessment/Plan - Assessment Assessment: Leukocytosis Unspecified psychosis Vascular Dementia (moderate-severe) Hypertension Diabetes Mellitus H/O CVA S/P hysterectomy S/P endarterectomy S/P hand surgery - Plan Plan: * Continue current medications * Continue current treatment * Awaiting lab results * Awaiting culture results * Further per psychiatry Nutritional Asmnt/Malnutr-PDOC - Dietary Evaluation Malnutrition Findings (Please click <Entered> for more info): Nutritional Asmnt/Malnutrition Start: 04/24/19 14: 32 Text: Status: Complete Freq: Protocol: Document 04/24/19 14:33 LUIS (Rec: 04/24/19 14:36 LUIS [email or web address]) Nutritional Asmnt/Malnutrition Patient General Information Nutritional Screening High Risk Diagnosis Psychosis Pertinent Medical Hx/Surgical Hx CVA, CAD, DM, HTN, Anemia, UTI Subjective Information Pt is a 74-year-old female admitted on 04/23, transferred from [facility]. Pt is high risk d/t BMI 16.0, underweight. Took down pt foods that are not tolerated well, noted in Computrition. Visited pt, pt was outside room in Dia chair awake and looking around. Pt did not answer questions, did not seem to comprehend. Upon visual inspection, pt did not have clear signs of malnutrition or fat/muscle wasting. Pt was wearing a sweatshirt and headband, so I could not see her temples or clavicle, but eye sockets and cheeks were normal. Talked to charge nurse pertaining to a weight check as pt appeared to weigh more than noted 102 pounds. Nurse Darrick stated pt ate well this morning and lunch time. Will continue to monitor PO intake and weight check. Will downgrade pt to moderate risk and reassess when current weight is available. Anthropometrics HT: 57 WT: 102 LB (46.36 kg) BMI: 16.0 (Underweight) GI/ Skin Integrity GI: WNL BM: 04/24 x1 I/O: 60/Not Noted Skin: WNL Andres: 18 Diet Order: Cardiac, NCS, 2gm Na Allergy: Lactose Estimated Energy Needs: ( Underweight, CBW) 6696-4462 kcals (30-35 kcals/ kg) 46-56g Pro (1.0-1.2 g/kg) 8661-3879 ml (30-40 ml/kg) Current Diet Order/ Nutrition Support Cardiac, NCS, 2gm Na Pertinent Medications Lipitor, Glucotrol Pertinent Labs 04/20: Hgb/Hct 8.0/23.6, Glucose 101, Mg 2.3, T Pro 5.9 , Alb 2.9, CRP 3.4 Nutritional Hx/Data Height 1.7 m Height (Calculated Centimeters) 170.2 Current Weight (lbs) 46.266 kg Weight (Calculated Kilograms) 46.3 Weight (Calculated Grams) 21576.4 [place] Body Weight 135 LB (61.36 kg) % [place] Body Weight 76 Body Mass Index (BMI) 16.0 Weight Status Underweight GI Symptoms GI Symptoms None Last BM 04/24 x1 Skin Integrity/Comment: Skin: WNL Andres: 18 Current %PO Fair (50-74%) Estimated Nutritional Goals BEE in Kcals: Using Current wt Calories/Kcals/Kg 30-35 Kcals Calculated 0414-7518 Protein: Using Current wt Protein g/k.0-1.2 Protein Calculated 46-56 Fluid: ml 6917-1821 ml (30-40 ml/kg) Nutritional Problem 1. Problem Problem Underweight Etiology r/t consistent inadequate energy intake Signs/Symptoms: aeb BMI 16.0 (recommending weight check). Malnutrition Related to Morbid Obesity Malnutrition related to morbid obesity No Intervention/Recommendation Comments 1. Continue with Cardiac, NCS, 2gm Na diet as ordered. 2. Record pt foods which are not tolerated well (completed) . 3. Recommend current weight check. Expected Outcomes/Goals Expected Outcomes/Goals 1. PO intake to meet 75% of nutritional needs. 2. Monitor PO intake, wt, nutrition related labs, and skin integrity. 3. F/U as moderate risk in 3-5 days, 04/27-04/29
--- NOTE | 2019-05-07 16:46 | Progress Notes ---
DATE: SUBJECTIVE: Chart was reviewed and patient was interviewed. Also, discussed the patient's condition with the staff and reviewed the records and labs. The patient is still confused and is still withdrawn, but her agitation seems to be much less. The patient also is able to make her needs known and to verbalize her needs and feelings. The patient also is trying to interact slightly more, although she is still confused, but seems to be less confused. The patient also is compliant with taking her medications with no side effects of medications. ASSESSMENT: The patient is still confused, but less agitated. TREATMENT PLAN: Continue to monitor behavior and condition closely. Also, continue working on her irritability and adjusting psychotropic medications. Also, discussed with the patient's daughter the last week a placement issue and recommended [facility] and patient to contact [facility] and to let me know her final decision in regard to placement. JOB# [id number]
[2019-05-08] MEDS: INSULIN LISPRO SLIDING SCALE 100 UNITS/ML UNIT SUBQ SCH ×5 (06:48→21:14)
[2019-05-08] MEDS: JARDIANCE 25 MG PO SCH (08:51)
--- NOTE | 2019-05-08 17:56 | Progress Notes ---
DATE: 05/08/2019 PSYCHIATRIC PROGRESS NOTE SUBJECTIVE: Chart was reviewed and the patient interviewed. Also discussed the patient's condition with the staff and reviewed records and labs. The patient still has episodes of agitation. The patient is complaining of cold, but at the same time when staff tries to cover her, she pushed the cover away and uncovered herself with extra blanket. The patient also still has episodes of irritability and anger, but easier to redirect her. She also has been compliant with taking her medications. Also, staff reports that the patient slept 4 hours last night, which is little bit less than what she was sleeping before. Because the patient's daughter was complaining of the patient is sedated, I decreased her Risperdal 0.25 mg in the morning and 0.5 mg at bedtime. At the same time, that was just for 1 day. ASSESSMENT: The patient seems to be slightly calmer, but still confused and agitated. TREATMENT PLAN: We will continue monitoring behavior and condition closely. Also, working with protective services case worker and the patient's daughter in regard to placement issue and discharge plans. JOB# [id number]
[2019-05-09] MEDS: INSULIN LISPRO SLIDING SCALE 100 UNITS/ML UNIT SUBQ SCH ×3 (06:37→16:30)
[2019-05-09] MEDS: JARDIANCE 25 MG PO SCH (08:38)
--- NOTE | 2019-05-09 15:34 | General Progress Note ---
Subjective - Review of Systems Service Date: 05/08/19 Subjective: * Patient is in Geropsych unit * Patient is awake * Patient is still confused and agitated * Awaiting lab results Objective - Results Recent Labs: Laboratory Last Values POC Glucose 91 MG/DL (70 - 105) 05/01/19 11:53 - Physical Exam Vitals and I&O: Vital Signs Temp 98 F 05/09/19 06:41 Pulse 95 05/09/19 08:40 Resp 20 05/09/19 06:41 BP 158/78 05/09/19 08:40 Pulse Ox 100 05/09/19 06:41 Intake & Output 05/08/19 05/09/19 05/09/19 18:59 06:59 18:59 Intake Total 920 Balance 920 Intake: Oral 920 Other: # Voids 3 # Bowel Movements 0 Active Medications: Current Medications Acetaminophen (Tylenol) 650 mg PO Q6H PRN PRN Reason: Mild Pain/Headache/T above 101 Stop: 06/23/19 18:45 Last Admin: 05/09/19 14:33 Dose: 650 mg Al Hydrox/Mg Hydrox/Simethicone (Maalox) 30 ml PO Q6H PRN PRN Reason: Dyspepsia Stop: 06/23/19 18:45 Last Admin: 05/01/19 18:08 Dose: 30 ml Aspirin (Ecotrin) 81 mg PO DAILY [facility] Stop: 06/23/19 08:59 Last Admin: 05/09/19 08:35 Dose: 81 mg Atorvastatin Calcium (Lipitor) 40 mg PO DAILY [facility] Stop: 06/23/19 08:59 Last Admin: 05/09/19 08:38 Dose: 40 mg Benazepril HCl (Lotensin) 20 mg PO BID [facility] Stop: 06/24/19 16:59 Last Admin: 05/09/19 08:35 Dose: 20 mg Clonidine HCl (Nyhgrtcr-Eet-6) 1 patch TD QFRI@1000 [facility] Stop: 06/26/19 09:59 Last Admin: 05/04/19 09:38 Dose: 1 patch Dextrose (Glutose 40%) 18.75 gm PO PRN PRN PRN Reason: BS Below 70 if tolerate po Stop: 06/23/19 18:45 Divalproex Sodium (Depakote Sprinkle) 125 mg PO BID [facility]; Protocol Stop: 06/23/19 08:59 Last Admin: 05/09/19 08:36 Dose: 125 mg Glipizide (Glucotrol) 10 mg PO BIDWM HERB Stop: 06/23/19 07:59 Last Admin: 05/09/19 08:37 Dose: 10 mg Glucagon (Glucagen) 1 mg IM PRN PRN PRN Reason: BS Below 70 if not tolerate po Stop: 06/23/19 18:45 Hydralazine HCl (Apresoline) 25 mg PO DAILY HER[facility] Stop: 06/23/19 08:59 Last Admin: 05/09/19 08:35 Dose: 25 mg Insulin Human Lispro (Humalog Insulin Sliding Scale) 0 units SUBQ ACHS [facility]; Protocol Stop: 06/23/19 20:59 Last Admin: 05/09/19 11:25 Dose: Not Given Lorazepam (Ativan) 0.5 mg PO Q4HR PRN; Protocol PRN Reason: Anxiety Stop: 05/23/19 22:48 Last Admin: 05/09/19 13:28 Dose: 0.5 mg Magnesium Hydroxide (Milk Of Magnesia) 30 ml PO HS PRN PRN Reason: Constipation Stop: 06/23/19 18:45 Ondansetron HCl (Zofran Odt) 4 mg PO Q6H PRN PRN Reason: Nausea / Vomiting Stop: 06/23/19 18:45 Last Admin: 04/30/19 13:08 Dose: 4 mg Patient Own Med- Jardiance ( Empagliflozin) 25mg Tab 1 PO DAILY [facility] Stop: 06/24/19 08:59 Last Admin: 05/09/19 08:38 Dose: 1 Risperidone (Risperdal) 0.25 mg PO QPM HERB; Protocol Stop: 07/07/19 16:59 Last Admin: 05/08/19 17:37 Dose: Not Given Risperidone (Risperdal) 0.25 mg PO DAILY [facility]; Protocol Stop: 07/08/19 08:59 Last Admin: 05/09/19 08:37 Dose: 0.25 mg Spironolactone (Aldactone) 25 mg PO DAILY HERB Stop: 06/25/19 08:59 Last Admin: 05/09/19 08:40 Dose: 25 mg Trazodone HCl (Desyrel) 75 mg PO HS [facility]; Protocol Stop: 07/08/19 20:59 General: No acute distress HEENT: no Atraumatic, no PERRLA, no 6, no EOMI, no 7, no Mucous membr. moist/ pink, no Other, no 8, no 9, no 10, no 11, no 12, no 13, no 14, no 15, no 16, no 22, no 17, no 23, no 18, no 24, no 19, no 20, no 21 Neck: no Supple, no JVD, no Thyromegaly, no +2 carotid pulse wo bruit, no LAD, no Other Cardiovascular: no Regular rate, no Normal S1, no Normal S2, no Systolic murmurs , no Gallops, no Rubs, no Other Lungs: Clear to auscultation, Normal air movement Abdomen: Bowel sounds, Soft Extremities: no Clubbing, no Cyanosis, no Edema, no Pulses, no Tender, no Other Neurological: no Normal gait, no Normal speech, no 9, no Strength at 5/5 X4 ext , no Normal tone, no Sensation intact, no Cranial nerves 3-12 NL, no Reflexes 2+ , no 10, no Other, no 11 Skin: no Rash, no Breakdown, no Significant lesion, no Other Assessment/Plan - Assessment Assessment: Leukocytosis Unspecified psychosis Vascular Dementia (moderate-severe) Hypertension Diabetes Mellitus H/O CVA S/P hysterectomy S/P endarterectomy S/P hand surgery - Plan Plan: * Continue current medications * Continue current treatment * Awaiting lab results * Awaiting culture results * Further per psychiatry Nutritional Asmnt/Malnutr-PDOC - Dietary Evaluation Malnutrition Findings (Please click <Entered> for more info): Nutritional Asmnt/Malnutrition Start: 04/24/19 14: 32 Text: Status: Complete Freq: Protocol: Document 04/24/19 14:33 LUIS (Rec: 04/24/19 14:36 LUIS [email or web address]) Nutritional Asmnt/Malnutrition Patient General Information Nutritional Screening High Risk Diagnosis Psychosis Pertinent Medical Hx/Surgical Hx CVA, CAD, DM, HTN, Anemia, UTI Subjective Information Pt is a 74-year-old female admitted on 04/23, transferred from [facility]. Pt is high risk d/t BMI 16.0, underweight. Took down pt foods that are not tolerated well, noted in Computrition. Visited pt, pt was outside room in Dia chair awake and looking around. Pt did not answer questions, did not seem to comprehend. Upon visual inspection, pt did not have clear signs of malnutrition or fat/muscle wasting. Pt was wearing a sweatshirt and headband, so I could not see her temples or clavicle, but eye sockets and cheeks were normal. Talked to charge nurse pertaining to a weight check as pt appeared to weigh more than noted 102 pounds. Nurse Darrick stated pt ate well this morning and lunch time. Will continue to monitor PO intake and weight check. Will downgrade pt to moderate risk and reassess when current weight is available. Anthropometrics HT: 57 WT: 102 LB (46.36 kg) BMI: 16.0 (Underweight) GI/ Skin Integrity GI: WNL BM: 04/24 x1 I/O: 60/Not Noted Skin: WNL Andres: 18 Diet Order: Cardiac, NCS, 2gm Na Allergy: Lactose Estimated Energy Needs: ( Underweight, CBW) 6317-2528 kcals (30-35 kcals/ kg) 46-56g Pro (1.0-1.2 g/kg) 2122-5180 ml (30-40 ml/kg) Current Diet Order/ Nutrition Support Cardiac, NCS, 2gm Na Pertinent Medications Lipitor, Glucotrol Pertinent Labs 04/20: Hgb/Hct 8.0/23.6, Glucose 101, Mg 2.3, T Pro 5.9 , Alb 2.9, CRP 3.4 Nutritional Hx/Data Height 1.7 m Height (Calculated Centimeters) 170.2 Current Weight (lbs) 46.266 kg Weight (Calculated Kilograms) 46.3 Weight (Calculated Grams) 50118.4 [place] Body Weight 135 LB (61.36 kg) % [place] Body Weight 76 Body Mass Index (BMI) 16.0 Weight Status Underweight GI Symptoms GI Symptoms None Last BM 04/24 x1 Skin Integrity/Comment: Skin: WNL Andres: 18 Current %PO Fair (50-74%) Estimated Nutritional Goals BEE in Kcals: Using Current wt Calories/Kcals/Kg 30-35 Kcals Calculated 4027-7698 Protein: Using Current wt Protein g/k.0-1.2 Protein Calculated 46-56 Fluid: ml 1629-8759 ml (30-40 ml/kg) Nutritional Problem 1. Problem Problem Underweight Etiology r/t consistent inadequate energy intake Signs/Symptoms: aeb BMI 16.0 (recommending weight check). Malnutrition Related to Morbid Obesity Malnutrition related to morbid obesity No Intervention/Recommendation Comments 1. Continue with Cardiac, NCS, 2gm Na diet as ordered. 2. Record pt foods which are not tolerated well (completed) . 3. Recommend current weight check. Expected Outcomes/Goals Expected Outcomes/Goals 1. PO intake to meet 75% of nutritional needs. 2. Monitor PO intake, wt, nutrition related labs, and skin integrity. 3. F/U as moderate risk in 3-5 days, 04/27-04/29
--- NOTE | 2019-05-09 15:38 | General Progress Note ---
Subjective - Review of Systems Service Date: 05/09/19 Events since last encounter: Patient transferred to [facility] due to ALOC and hypotension. Subjective: * Patient is in Geropsych unit * Patient is awake * Patient is still confused and agitated * Awaiting lab results Objective - Results Recent Labs: Laboratory Last Values POC Glucose 91 MG/DL (70 - 105) 05/01/19 11:53 - Physical Exam Vitals and I&O: Vital Signs Temp 98 F 05/09/19 06:41 Pulse 95 05/09/19 08:40 Resp 20 05/09/19 06:41 BP 158/78 05/09/19 08:40 Pulse Ox 100 05/09/19 06:41 Intake & Output 05/08/19 05/09/19 05/09/19 18:59 06:59 18:59 Intake Total 920 Balance 920 Intake: Oral 920 Other: # Voids 3 # Bowel Movements 0 Active Medications: Current Medications Acetaminophen (Tylenol) 650 mg PO Q6H PRN PRN Reason: Mild Pain/Headache/T above 101 Stop: 06/23/19 18:45 Last Admin: 05/09/19 14:33 Dose: 650 mg Al Hydrox/Mg Hydrox/Simethicone (Maalox) 30 ml PO Q6H PRN PRN Reason: Dyspepsia Stop: 06/23/19 18:45 Last Admin: 05/01/19 18:08 Dose: 30 ml Aspirin (Ecotrin) 81 mg PO DAILY [facility] Stop: 06/23/19 08:59 Last Admin: 05/09/19 08:35 Dose: 81 mg Atorvastatin Calcium (Lipitor) 40 mg PO DAILY [facility] Stop: 06/23/19 08:59 Last Admin: 05/09/19 08:38 Dose: 40 mg Benazepril HCl (Lotensin) 20 mg PO BID [facility] Stop: 06/24/19 16:59 Last Admin: 05/09/19 08:35 Dose: 20 mg Clonidine HCl (Cwhsayfv-Hym-8) 1 patch TD QFRI@1000 [facility] Stop: 06/26/19 09:59 Last Admin: 05/04/19 09:38 Dose: 1 patch Dextrose (Glutose 40%) 18.75 gm PO PRN PRN PRN Reason: BS Below 70 if tolerate po Stop: 06/23/19 18:45 Divalproex Sodium (Depakote Sprinkle) 125 mg PO BID [facility]; Protocol Stop: 06/23/19 08:59 Last Admin: 05/09/19 08:36 Dose: 125 mg Glipizide (Glucotrol) 10 mg PO BIDWM [facility] Stop: 06/23/19 07:59 Last Admin: 05/09/19 08:37 Dose: 10 mg Glucagon (Glucagen) 1 mg IM PRN PRN PRN Reason: BS Below 70 if not tolerate po Stop: 06/23/19 18:45 Hydralazine HCl (Apresoline) 25 mg PO DAILY [facility] Stop: 06/23/19 08:59 Last Admin: 05/09/19 08:35 Dose: 25 mg Insulin Human Lispro (Humalog Insulin Sliding Scale) 0 units SUBQ ACHS [facility]; Protocol Stop: 06/23/19 20:59 Last Admin: 05/09/19 11:25 Dose: Not Given Lorazepam (Ativan) 0.5 mg PO Q4HR PRN; Protocol PRN Reason: Anxiety Stop: 05/23/19 22:48 Last Admin: 05/09/19 13:28 Dose: 0.5 mg Magnesium Hydroxide (Milk Of Magnesia) 30 ml PO HS PRN PRN Reason: Constipation Stop: 06/23/19 18:45 Ondansetron HCl (Zofran Odt) 4 mg PO Q6H PRN PRN Reason: Nausea / Vomiting Stop: 06/23/19 18:45 Last Admin: 04/30/19 13:08 Dose: 4 mg Patient Own Med- Jardiance ( Empagliflozin) 25mg Tab 1 PO DAILY [facility] Stop: 06/24/19 08:59 Last Admin: 05/09/19 08:38 Dose: 1 Risperidone (Risperdal) 0.25 mg PO QPM [facility]; Protocol Stop: 07/07/19 16:59 Last Admin: 05/08/19 17:37 Dose: Not Given Risperidone (Risperdal) 0.25 mg PO DAILY [facility]; Protocol Stop: 07/08/19 08:59 Last Admin: 05/09/19 08:37 Dose: 0.25 mg Spironolactone (Aldactone) 25 mg PO DAILY [facility] Stop: 06/25/19 08:59 Last Admin: 05/09/19 08:40 Dose: 25 mg Trazodone HCl (Desyrel) 75 mg PO HS [facility]; Protocol Stop: 07/08/19 20:59 General: No acute distress HEENT: no Atraumatic, no PERRLA, no 6, no EOMI, no 7, no Mucous membr. moist/ pink, no Other, no 8, no 9, no 10, no 11, no 12, no 13, no 14, no 15, no 16, no 22, no 17, no 23, no 18, no 24, no 19, no 20, no 21 Neck: no Supple, no JVD, no Thyromegaly, no +2 carotid pulse wo bruit, no LAD, no Other Cardiovascular: no Regular rate, no Normal S1, no Normal S2, no Systolic murmurs , no Gallops, no Rubs, no Other Lungs: Clear to auscultation, Normal air movement Abdomen: Bowel sounds, Soft Extremities: no Clubbing, no Cyanosis, no Edema, no Pulses, no Tender, no Other Neurological: no Normal gait, no Normal speech, no 9, no Strength at 5/5 X4 ext , no Normal tone, no Sensation intact, no Cranial nerves 3-12 NL, no Reflexes 2+ , no 10, no Other, no 11 Skin: no Rash, no Breakdown, no Significant lesion, no Other Assessment/Plan - Assessment Assessment: Leukocytosis Unspecified psychosis Vascular Dementia (moderate-severe) Hypertension Diabetes Mellitus H/O CVA S/P hysterectomy S/P endarterectomy S/P hand surgery - Plan Plan: * Continue current medications * Continue current treatment * Awaiting lab results * Awaiting culture results * Further per psychiatry Nutritional Asmnt/Malnutr-PDOC - Dietary Evaluation Malnutrition Findings (Please click <Entered> for more info): Nutritional Asmnt/Malnutrition Start: 04/24/19 14: 32 Text: Status: Complete Freq: Protocol: Document 04/24/19 14:33 LUIS (Rec: 04/24/19 14:36 LUIS [id number]) Nutritional Asmnt/Malnutrition Patient General Information Nutritional Screening High Risk Diagnosis Psychosis Pertinent Medical Hx/Surgical Hx CVA, CAD, DM, HTN, Anemia, UTI Subjective Information Pt is a 74-year-old female admitted on 04/23, transferred from [facility]. Pt is high risk d/t BMI 16.0, underweight. Took down pt foods that are not tolerated well, noted in [employer]. Visited pt, pt was outside room in Dia chair awake and looking around. Pt did not answer questions, did not seem to comprehend. Upon visual inspection, pt did not have clear signs of malnutrition or fat/muscle wasting. Pt was wearing a sweatshirt and headband, so I could not see her temples or clavicle, but eye sockets and cheeks were normal. Talked to charge nurse pertaining to a weight check as pt appeared to weigh more than noted 102 pounds. Nurse Darrick stated pt ate well this morning and lunch time. Will continue to monitor PO intake and weight check. Will downgrade pt to moderate risk and reassess when current weight is available. Anthropometrics HT: 57 WT: 102 LB (46.36 kg) BMI: 16.0 (Underweight) GI/ Skin Integrity GI: WNL BM: 04/24 x1 I/O: 60/Not Noted Skin: WNL Andres: 18 Diet Order: Cardiac, NCS, 2gm Na Allergy: Lactose Estimated Energy Needs: ( Underweight, CBW) 1072-8763 kcals (30-35 kcals/ kg) 46-56g Pro (1.0-1.2 g/kg) 8035-7172 ml (30-40 ml/kg) Current Diet Order/ Nutrition Support Cardiac, NCS, 2gm Na Pertinent Medications Lipitor, Glucotrol Pertinent Labs 04/20: Hgb/Hct 8.0/23.6, Glucose 101, Mg 2.3, T Pro 5.9 , Alb 2.9, CRP 3.4 Nutritional Hx/Data Height 1.7 m Height (Calculated Centimeters) 170.2 Current Weight (lbs) 46.266 kg Weight (Calculated Kilograms) 46.3 Weight (Calculated Grams) 52995.4 Jackson Body Weight 135 LB (61.36 kg) % Jackson Body Weight 76 Body Mass Index (BMI) 16.0 Weight Status Underweight GI Symptoms GI Symptoms None Last BM 04/24 x1 Skin Integrity/Comment: Skin: WNL Andres: 18 Current %PO Fair (50-74%) Estimated Nutritional Goals BEE in Kcals: Using Current wt Calories/Kcals/Kg 30-35 Kcals Calculated 1231-7699 Protein: Using Current wt Protein g/k.0-1.2 Protein Calculated 46-56 Fluid: ml 4108-2029 ml (30-40 ml/kg) Nutritional Problem 1. Problem Problem Underweight Etiology r/t consistent inadequate energy intake Signs/Symptoms: aeb BMI 16.0 (recommending weight check). Malnutrition Related to Morbid Obesity Malnutrition related to morbid obesity No Intervention/Recommendation Comments 1. Continue with Cardiac, NCS, 2gm Na diet as ordered. 2. Record pt foods which are not tolerated well (completed) . 3. Recommend current weight check. Expected Outcomes/Goals Expected Outcomes/Goals 1. PO intake to meet 75% of nutritional needs. 2. Monitor PO intake, wt, nutrition related labs, and skin integrity. 3. F/U as moderate risk in 3-5 days, 04/27-04/29
--- NOTE | 2019-05-10 01:37 | Progress Notes ---
DATE: SUBJECTIVE: Chart was reviewed and the patient interviewed. Also discussed the patient's condition with the staff and reviewed the records and labs. Staff found the patient last night semiconscious and she was transferred to [facility] where the patient evaluated and sent back. The patient told to staff "I faked it." Staff does not believe that the patient was faking the stroke or her being unconscious. She continued to be more oriented and cooperative, but also because of possible stroke and history of stroke, we will monitor her behavior and condition and her medications. ASSESSMENT: The patient seems to be calmer and more cooperative. TREATMENT PLAN: Because of the incidence last night, we will continue to adjust medications and will decrease Risperdal to 0.25 mg in the morning and 0.25 mg in the evening. Also, we will decrease trazodone to 75 mg at bedtime and continue to monitor behavior closely. Also, planning to call the patient's daughter to discuss with her placement issue and she was given [facility] as recommendations for placement since it is close to her living place, but up till now we did not hear back from there yet. Meanwhile, continue current treatment and medications and we will continue to follow up. JOB# [id number]
--- NOTE | 2019-05-10 15:13 | Discharge Summary ---
DATE OF DISCHARGE: 05/09/2019 PATIENT'S AGE: 74. SEX: Female. PHYSICIAN: Dr. Castellanos. FINAL DIAGNOSIS AND PRIMARY DIAGNOSIS: Unspecified psychosis. SECONDARY DIAGNOSIS: Dementia, moderate to severe, most probably vascular ____ with psychotic features. MEDICAL DIAGNOSES: 1. History of cerebrovascular accident. 2. Hypertension. 3. Diabetes mellitus. 4. Anemia. 5. Urinary tract infection. REASON FOR HOSPITALIZATION: The patient was admitted to the hospital because of increased agitation and restlessness and the patient was trying to hit staff and others including myself during the interview upon admission and she was bounding on the wheelchair and was not able to follow any directions. HOSPITAL COURSE: The patient was anxious and in irritable mood. The patient also was extremely agitated. The patient also was having difficulty with her mood. The patient continued to take Risperdal and the dose adjusted to 0.5 mg twice a day and also trazodone was increased to 100 mg at bedtime. The patient's daughter was informed about the changes and about the risk of stroke. Actually, the patient was showing much improvement on that dose, but at certain time, the patient was slightly sedated and trazodone and Risperdal was decreased. The patient's blood pressure dropped and the patient was found to semi-unconscious and she was transferred to [facility] once she was medically cleared and returned back to the hospital. I informed the patient about the patient's daughter with the changes and also I decreased the Risperdal. On the second day, the patient had episodes of being unconscious and the patient was transferred again to [facility] where she was kept there for observation and questionable that they found brain bleed according to staff. The patient's daughter also was with the patient in [facility]. Physical exam of the patient showed that the patient has diabetes mellitus and history of stroke and hypertension. The patient was admitted to [facility] for observation was questionable brain bleeds. AFTER DISCHARGE PLANS: The patient discharged to [facility] and we will follow up with the patient's daughter about the outcome there. I discussed with the patient's daughter prior to all those incidents and transferring the patient to [facility] where it is close to where she lives, but also she wanted to see [facility], but the patient was admitted to [facility] and also those placement plan was stopped temporarily. PROGNOSIS: At this time is guarded and depends on the situation in [facility]. From the psychiatric point of view, the patient was calmer and less agitated and was more coherent until the transfer of the [facility] secondary to her unconscious and altered level of conscious. JOB# [id number]
== END 2019-05-09 17:55 | disposition short-term general hospital (02) | DRG 885 ==
LOC: GERO 04-23 18:45
PROVIDERS: ADMIT Psychiatry & Neurology Psychiatry; ATTEND Psychiatry & Neurology Psychiatry
DX: F29 Unspecified psychosis not due to a substance or known physiological condition (principal); F01.50 Vascular dementia, unspecified severity, without behavioral disturbance, psychotic disturbance, mood disturbance, and anxiety; N18.9 Chronic kidney disease, unspecified; E11.65 Type 2 diabetes mellitus with hyperglycemia; I25.10 Atherosclerotic heart disease of native coronary artery without angina pectoris; E11.21 Type 2 diabetes mellitus with diabetic nephropathy; E11.22 Type 2 diabetes mellitus with diabetic chronic kidney disease; I12.9 Hypertensive chronic kidney disease with stage 1 through stage 4 chronic kidney disease, or unspecified chronic kidney disease; F32.9 Major depressive disorder, single episode, unspecified; D72.829 Elevated white blood cell count, unspecified; D64.9 Anemia, unspecified; Z86.73 Personal history of transient ischemic attack (TIA), and cerebral infarction without residual deficits; Z90.710 Acquired absence of both cervix and uterus; Z87.440 Personal history of urinary (tract) infections; Z88.0 Allergy status to penicillin; Z88.8 Allergy status to other drugs, medicaments and biological substances
CPT/HCPCS: 82948-90; 83036-90; 97530; G0410; Q0162; X3904; Z7610

== ENCOUNTER 2019-05-22 09:55 | Inpatient (IN) | payer MEDICARE, OTHER ==
[2019-05-22 10:30] VITALS: BP 148/73
[2019-05-22] MEDS ORDERED: Maalox 30 mL Cup PO PRN (11:54)
[2019-05-22] MEDS ORDERED: Magnesium Hydroxide (MOM) 30 mL UDC PO PRN (11:54)
[2019-05-22] MEDS ORDERED: GLUCAGON HCl 1 MG KIT IM PRN (12:26)
[2019-05-22] MEDS ORDERED: cloNIDine 0.2 mg/24 hr Tdm TD SCH (13:00)
[2019-05-22] MEDS: INSULIN LISPRO SLIDING SCALE 100 UNITS/ML UNIT SUBQ SCH ×2 (17:57→21:29)
--- NOTE | 2019-05-22 21:30 | Psychiatric Evaluation ---
DATE OF SERVICE: 05/22/2019 JUSTIFICATION FOR HOSPITALIZATION: Agitation and worsening confusion. HISTORY OF PRESENT ILLNESS: This is a 74-year-old female admitted to [facility] medically decompensated, went to [facility], stabilized, [facility] Very confused, disoriented, restless, needing a high level of prompting, redirection, trying to get up, loud, aggressive at times, difficult to control her behaviors. PAST PSYCHIATRIC HISTORY: Recent admission and also dementia with dementional behaviors. SOCIAL HISTORY: Living at home. Daughter involved. The patient has two caretakers at home per the daughter. I met with the daughter. MEDICATIONS: Noted. MENTAL STATUS EXAMINATION: Stated age, confused, disoriented. No overt aggressive symptoms, concerns for psychosis. Poor impulse control. PROVISIONAL DIAGNOSES: Dementia with dementional behaviors. ESTIMATED LENGTH OF STAY: 7-10 days. ASSESSMENT: The patient requiring hospitalization, agitated, aggressive and not at her baseline. PLAN: We will continue to monitor and adjust medications. CONDITIONS FOR DISCHARGE: Improved mood, improved affect, better control of her mood symptoms, aggressiveness. JOB# [id number]
[2019-05-23] MEDS: INSULIN LISPRO SLIDING SCALE 100 UNITS/ML UNIT SUBQ SCH ×3 (06:54→17:47)
[2019-05-23] MEDS ORDERED: Multivitamin Tab PO SCH (09:00)
--- NOTE | 2019-05-23 12:49 | Progress Notes ---
DATE: 05/23/2019 SUBJECTIVE: The patient in the hospital, yelling and screaming episodes. Staff watching her closely. Ongoing confusion. She does seem to be calmer. Family very involved with concerns. The patient seems to be doing better with increased dose of Seroquel. She seems calm on exam. Not as restless, less yelling and screaming episodes per the staff. No side effects. No overt sedation. JOB# [id number]
--- NOTE | 2019-05-23 15:06 | History and Physical ---
History of Present Illness - HPI Chief Complaint: Agitation HPI: * Admited from [facility] for agitation and confusion Vital Signs: Last Vital Signs Temp 98.3 F 05/23/19 06:46 Pulse 94 05/23/19 10:43 Resp 18 05/23/19 06:46 BP 172/77 05/23/19 10:43 Pulse Ox 100 05/23/19 06:46 Past Medical History Cardiovascular: Report: CAD, HTN [employer]IV[employer]ITY AR[employer]IVIST: Report: CVA Psych: Report: Depression Endocrine: Report: Diabetes - Past Surgical History Past Surgical History: Other (Hysterectomy, Endarterectomy, Hand surgery) Family Medical History - Family Member Mother History Unknown: Yes Social History Smoke: No Alcohol: None Drugs: None Lives: With Family Domestic Violence: Negative - Medications Home Medications: Home Medication Medication Instructions Recorded Type Aspirin [Adult Aspirin] 81 mg PO DAILY 04/24/19 History Atorvastatin Calcium [Lipitor] 40 mg PO DAILY 04/24/19 History Benazepril [Lotensin] 20 mg PO DAILY 04/24/19 History Clonidine [Catapres-Tts 2] 1 patch TD QFRI 04/24/19 History Divalproex Sodium [Depakote 125 mg PO BID 04/24/19 History Sprinkle] Empagliflozin [Jardiance] 25 mg PO DAILY 04/24/19 History Glipizide 10 mg PO BID 04/24/19 History Hydralazine HCl 25 mg PO DAILY 04/24/19 History Metoprolol Tartrate [Lopressor] 50 mg PO BID 04/24/19 History Nitrofurantoin Macrocrystal 100 mg PO Q12HR 04/24/19 History [Nitrofurantoin] Rivaroxaban [Xarelto] 15 mg PO DAILY 04/24/19 History risperiDONE [RisperDAL] 0.5 mg PO BID 04/24/19 History Other Medications: See MAR - Allergies Allergies/Adverse Reactions: Allergies Allergy/AdvReac Type Severity Reaction Status Date / Time doxycycline Allergy Unknown UNKNOWN Verified 04/23/19 21:56 lactose Allergy Unknown Verified 04/23/19 22:03 Penicillins [PCN] Allergy Unknown Verified 04/23/19 22:06 sitagliptin Allergy Unknown Verified 04/23/19 22:47 metformin Allergy Unknown Uncoded 04/23/19 22:06 Other Allergies: See history Review of Systems - Review of Systems Review of Systems: See HPI Constitutional: Report: No Significant Eyes: Report: No Significant ENT: Report: No Significant Respiratory: Report: No Significant Cardiovascular: Report: No Significant Gastrointestinal: Report: No Significant Genitourinary: Report: No Significant Musculoskeletal: Report: No Significant Skin: Report: No Significant Neurological: Report: No Significant Physical Exam - Physical Exam HEENT: Report: Ears Nose Throat within normal limits Neck: Report: Within normal limits Cardiovascular Systems: Report: +s1/s2 noted, Regular, Rate and Rhythm, no murmurs noted Respiratory: Report: Breath Sounds are within normal limits, Clear to Auscultation of lung car Abdomen: Report: Non-tender to palpation, Bowel Sounds are within normal limits Back: Report: Inspection of back is within normal limits. Extremities: Report: Non-tender to palpation., Patient had full range of motion , No pedal edema was noted on inspection Skin: Report: Color of skin is within normal limits, No Rashes noted of the skin Neuro/Psych: Report: Depressed affect - Assessment Assessment: * Dementia * Unspecified psychosis * CAD * HTN * DM * CKD * CVA * S/P hysterectomy * S/P enderactomy * S/P hand surgery - Plan Plan: * Continue current meds * Obtain labs * Further per psychiatry
[2019-05-24] MEDS ORDERED: Maalox 30 mL Cup PO PRN (09:58)
[2019-05-24] MEDS ORDERED: Magnesium Hydroxide (MOM) 30 mL UDC PO PRN (10:06)
[2019-05-24] MEDS ORDERED: GLUCAGON HCl 1 MG KIT IM PRN (10:10)
[2019-05-24] MEDS: Aspirin 81mg Chewable Tab PO SCH (10:53)
[2019-05-24] MEDS: INSULIN LISPRO SLIDING SCALE 100 UNITS/ML UNIT SUBQ SCH ×3 (11:56→21:53)
--- NOTE | 2019-05-24 15:44 | General Progress Note ---
Subjective - Review of Systems Service Date: 05/24/19 Events since last encounter: * Patient transferred to [facility] ED due to low blood pressure yesterday * Patient returned to [place] last night from [facility] ED Subjective: * Patient is awake * Per psychiatry, patient is still agitated and confused Objective - Physical Exam Vitals and I&O: Vital Signs Temp 98.8 F 05/24/19 06:19 Pulse 107 05/24/19 11:57 Resp 18 05/24/19 08:00 BP 170/105 05/24/19 10:55 Pulse Ox 100 05/24/19 06:19 Intake & Output 05/23/19 05/24/19 05/24/19 18:59 06:59 18:59 Intake Total 950 Balance 950 Intake: Oral 950 Other: # Voids 2 # Bowel Movements 1 Active Medications: Current Medications Acetaminophen (Tylenol) 650 mg PO Q4H PRN PRN Reason: TEMP ABOVE 100 Stop: 07/23/19 06:37 Last Admin: 05/24/19 12:02 Dose: 650 mg Acetaminophen (Tylenol) 650 mg PO Q6H PRN PRN Reason: pain Stop: 07/23/19 10:07 Al Hydrox/Mg Hydrox/Simethicone (Maalox) 30 ml PO Q4HR PRN PRN Reason: Dyspepsia Stop: 07/23/19 09:57 Amlodipine Besylate (Norvasc) 10 mg PO DAILY [facility] Stop: 07/23/19 10:14 Last Admin: 05/24/19 10:53 Dose: 10 mg Aspirin (Aspirin Chewable) 81 mg PO DAILY [facility] Stop: 07/23/19 09:59 Last Admin: 05/24/19 10:53 Dose: 81 mg Atorvastatin Calcium (Lipitor) 40 mg PO [facility]; Protocol Stop: 07/23/19 20:59 Benazepril HCl (Lotensin) 20 mg PO BID [facility] Stop: 07/23/19 16:59 Dextrose (Glutose 40%) 18.75 gm PO PRN PRN PRN Reason: BS Below 70 if tolerate po Stop: 07/23/19 10:09 [facility]) [facility] Stop: 07/23/19 16:29 Glucagon (Glucagen) 1 mg IM PRN PRN PRN Reason: BS Below 70 if not tolerate po Stop: 07/23/19 10:09 Hydralazine HCl (Apresoline) 25 mg PO DAILY [facility] Stop: 07/23/19 10:14 Last Admin: 05/24/19 10:54 Dose: 25 mg Insulin Human Lispro (Humalog Insulin Sliding Scale) 0 units SUBQ ACHS [facility]; Protocol Stop: 07/23/19 11:29 Last Admin: 05/24/19 11:56 Dose: 2 units Magnesium Hydroxide (Milk Of Magnesia) 30 ml PO HS PRN PRN Reason: Constipation Stop: 07/23/19 10:05 Metoprolol Tartrate (Lopressor) 50 mg PO BID [facility] Stop: 07/23/19 10:14 Last Admin: 05/24/19 10:55 Dose: 50 mg Ondansetron HCl (Zofran Odt) 4 mg PO Q6H PRN PRN Reason: Nausea / Vomiting Stop: 07/23/19 10:06 Spironolactone (Aldactone) 25 mg PO DAILY [facility] Stop: 07/23/19 10:14 Last Admin: 05/24/19 10:55 Dose: 25 mg General: No acute distress Cardiovascular: Regular rate, Normal S1, Normal S2 Lungs: Clear to auscultation Abdomen: Bowel sounds Assessment/Plan - Assessment Assessment: * Dementia * Unspecified psychosis * CAD * HTN * DM * CKD * CVA * S/P hysterectomy * S/P enderactomy * S/P hand surgery - Plan Plan: * Continue current meds * Obtain labs * Further per psychiatry
--- NOTE | 2019-05-24 22:41 | Progress Notes ---
DATE: 05/24/2019 SUBJECTIVE: The patient in the hospital, went to the ER, came back. I will lower her dosing of Seroquel. I am not quite sure why she keeps needing to go to the ER, was somewhat lethargic last night, still with some yelling episodes, screaming episodes, but generally calmer, more cooperative. Staff noting improvement. Good family support. The patient remains confused and disoriented. Medications were noted. Vital reviewed. JOB# [id number]
[2019-05-25] MEDS: INSULIN LISPRO SLIDING SCALE 100 UNITS/ML UNIT SUBQ SCH ×4 (06:41→21:20)
[2019-05-25] MEDS: Aspirin 81mg Chewable Tab PO SCH (08:28)
--- NOTE | 2019-05-25 09:37 | Progress Notes ---
DATE: 05/25/2019 SUBJECTIVE: The patient is still yelling, screaming, ruminative, requiring near constant staff supervision. Ongoing behavior is very confused. No events last night. No ER visits. I will be increasing her dosing of Seroquel today. She seems to be responding well to this, she just needs a higher dose. Monitor for over sedation. We will monitor closely on an inpatient unit. JOB# [id number]
[2019-05-26] MEDS: INSULIN LISPRO SLIDING SCALE 100 UNITS/ML UNIT SUBQ SCH ×3 (07:08→17:02)
[2019-05-26] MEDS: Aspirin 81mg Chewable Tab PO SCH (08:09)
--- NOTE | 2019-05-26 10:13 | General Progress Note ---
Subjective - Review of Systems Service Date: 05/25/19 Subjective: * Patient is awake * Per psychiatry, patient is still agitated and confused Objective - Physical Exam Vitals and I&O: Vital Signs Temp 97.9 F 05/26/19 06:43 Pulse 95 05/26/19 08:10 Resp 20 05/26/19 06:43 BP 144/84 05/26/19 08:10 Pulse Ox 97 05/26/19 06:43 Intake & Output 05/25/19 05/26/19 05/26/19 18:59 06:59 18:59 Intake Total 960 240 Output Total 2 Balance 960 238 Intake: Oral 960 240 Output: Urine/Stool Mix 2 Other: # Voids 3 1 # Bowel Movements 1 Active Medications: Current Medications Acetaminophen (Tylenol) 650 mg PO Q4H PRN PRN Reason: TEMP ABOVE 100 Stop: 07/23/19 06:37 Last Admin: 05/24/19 12:02 Dose: 650 mg Acetaminophen (Tylenol) 650 mg PO Q6H PRN PRN Reason: pain Stop: 07/23/19 10:07 Last Admin: 05/25/19 05:36 Dose: 650 mg Al Hydrox/Mg Hydrox/Simethicone (Maalox) 30 ml PO Q4HR PRN PRN Reason: Dyspepsia Stop: 07/23/19 09:57 Amlodipine Besylate (Norvasc) 10 mg PO DAILY [facility] Stop: 07/23/19 10:14 Last Admin: 05/26/19 08:08 Dose: 10 mg Aspirin (Aspirin Chewable) 81 mg PO DAILY [facility] Stop: 07/23/19 09:59 Last Admin: 05/26/19 08:09 Dose: 81 mg Atorvastatin Calcium (Lipitor) 40 mg PO HS [facility]; Protocol Stop: 07/23/19 20:59 Last Admin: 05/25/19 21:20 Dose: 40 mg Benazepril HCl (Lotensin) 20 mg PO BID [facility] Stop: 07/23/19 16:59 Last Admin: 05/26/19 08:10 Dose: 20 mg Dextrose (Glutose 40%) 18.75 gm PO PRN PRN PRN Reason: BS Below 70 if tolerate po Stop: 07/23/19 10:09 Glipizide (Glucotrol) 10 mg PO BIDAC [facility] Stop: 07/23/19 16:29 Last Admin: 05/26/19 07:07 Dose: Not Given Glucagon (Glucagen) 1 mg IM PRN PRN PRN Reason: BS Below 70 if not tolerate po Stop: 07/23/19 10:09 Hydralazine HCl (Apresoline) 25 mg PO DAILY [facility] Stop: 07/23/19 10:14 Last Admin: 05/26/19 08:08 Dose: 25 mg Insulin Human Lispro (Humalog Insulin Sliding Scale) 0 units SUBQ ACHS [facility]; Protocol Stop: 07/23/19 11:29 Last Admin: 05/26/19 07:08 Dose: Not Given Lorazepam (Ativan) 0.5 mg PO Q4HR PRN; Protocol PRN Reason: anxiety and agitation Stop: 07/24/19 02:01 Last Admin: 05/26/19 08:09 Dose: 0.5 mg Magnesium Hydroxide (Milk Of Magnesia) 30 ml PO HS PRN PRN Reason: Constipation Stop: 07/23/19 10:05 Metoprolol Tartrate (Lopressor) 50 mg PO BID [facility] Stop: 07/23/19 10:14 Last Admin: 05/26/19 08:07 Dose: 50 mg Ondansetron HCl (Zofran Odt) 4 mg PO Q6H PRN PRN Reason: Nausea / Vomiting Stop: 07/23/19 10:06 Quetiapine Fumarate (Seroquel) 37.5 mg PO BID [facility]; Protocol Stop: 07/24/19 16:59 Last Admin: 05/26/19 08:09 Dose: 37.5 mg Quetiapine Fumarate (Seroquel) 12.5 mg PO HS [facility]; Protocol Stop: 07/24/19 20:59 Last Admin: 05/25/19 21:19 Dose: 12.5 mg Spironolactone (Aldactone) 25 mg PO DAILY [facility] Stop: 07/23/19 10:14 Last Admin: 05/26/19 08:10 Dose: 25 mg Zolpidem Tartrate (Ambien) 5 mg PO HS PRN PRN Reason: Insomnia Stop: 07/24/19 02:01 Last Admin: 05/25/19 21:19 Dose: 5 mg General: No acute distress Cardiovascular: Regular rate, Normal S1, Normal S2 Lungs: Clear to auscultation Abdomen: Bowel sounds Assessment/Plan - Assessment Assessment: * Dementia * Unspecified psychosis * CAD * HTN * DM * CKD * CVA * S/P hysterectomy * S/P enderactomy * S/P hand surgery - Plan Plan: * Continue current meds * Further per psychiatry Nutritional Asmnt/Malnutr-PDOC - Dietary Evaluation Malnutrition Findings (Please click <Entered> for more info): Nutritional Asmnt/Malnutrition Start: 05/25/19 14: 33 Text: Status: Active Freq: Protocol: Document 05/25/19 14:33 LUIS (Rec: 05/25/19 14:36 [email or web address] [email or web address]) Nutritional Asmnt/Malnutrition Patient General Information Nutritional Screening Moderate Risk Diagnosis Psychosis Pertinent Medical Hx/Surgical Hx HTN, CAD, CVA, Depression, DM Subjective Information Pt is a 74-year-old female admitted on 05/21 d/t agitation and confusion. Pt is eating an estimated 60% of meals Per Meal/Nutrition Activity Record. Dietary is currently providing an estimated 2450 kcals and 130 gm Pro, per Pt PO intake this is providing an estimated 1470 kcals and 78gm Pro to meet 88 % kcal and 100% Pro needs- adequate. Glucerna TID has been added to pt meal trays per family request. Per family request, almond milk has been added to every meal as well. Anthropometrics HT: 57 WT: 146 LB (66.36 kg) BMI: 22.94 (Normal) GI/ Skin Integrity GI: Soft, Round BM: 05/24 x1 I/O: 2400/Not Noted Skin: WNL, Intact, scab on toe (on admittance) Andres: 15 Diet Order: CCHO, Chopped Estimated Energy Needs: ( Geriatric, CBW) 1492-4987 kcals (25-30 kcals/ kg) 66-80g Pro (1.0-1.2 g/kg) 9531-2596 ml (25-30 ml/kg) Current Diet Order/ Nutrition Support CCHO, Chopped Pertinent Medications Maalox (PRN), Lipitor, Glutose 40% (PRN), Glucagen (PRN), INS-SS, MOM (PRN), Aldactone, Zofran ODT (PRN) Pertinent Labs 05/24: Glucose 144, BUN/Cr 22/ 1.22 Nutritional Hx/Data Height 1.7 m Height (Calculated Centimeters) 170.2 Current Weight (lbs) 66.224 kg Weight (Calculated Kilograms) 66.2 Weight (Calculated Grams) 79843.5 [place] Body Weight 135 LB (61.36 kg) % [place]s Body Weight 108 Body Mass Index (BMI) 22.8 Weight Status Approriate GI Symptoms Last BM 05/24 x1 Skin Integrity/Comment: Skin: WNL, Intact, scab on toe (on admittance) Andres: 15 Current %PO Fair (50-74%) Estimated Nutritional Goals BEE in Kcals: Using Current wt Calories/Kcals/Kg 25-30 Kcals Calculated 1057-2843 Protein: Using Current wt Protein g/k.0-1.2 Protein Calculated 66-80 Fluid: ml 5542-1282 ml (25-30 ml/kg) Nutritional Problem 1. Problem Problem Impaired nutrient utilization Etiology r/t endocrine dysfunction Signs/Symptoms: aeb Glucose 144 and Hx DM. Malnutrition Related to Morbid Obesity Malnutrition related to morbid obesity No Intervention/Recommendation Comments 1. Continue CCHO, Chopped diet as tolerated. 2. Pt food likes/dislikes updated (completed). Expected Outcomes/Goals Expected Outcomes/Goals 1. PO intake to continue to meet >75% of estimated nutritional needs. 2. Monitor PO intake, wt, nutrition related labs, and skin integrity. 3. F/U as low risk in 7-10 days, 06/01-06/04
--- NOTE | 2019-05-26 10:16 | General Progress Note ---
Subjective - Review of Systems Service Date: 05/26/19 Subjective: * Patient is awake * Per psychiatry, patient is still agitated and confused Objective - Physical Exam Vitals and I&O: Vital Signs Temp 97.9 F 05/26/19 06:43 Pulse 95 05/26/19 08:10 Resp 20 05/26/19 06:43 BP 144/84 05/26/19 08:10 Pulse Ox 97 05/26/19 06:43 Intake & Output 05/25/19 05/26/19 05/26/19 18:59 06:59 18:59 Intake Total 960 240 Output Total 2 Balance 960 238 Intake: Oral 960 240 Output: Urine/Stool Mix 2 Other: # Voids 3 1 # Bowel Movements 1 Active Medications: Current Medications Acetaminophen (Tylenol) 650 mg PO Q4H PRN PRN Reason: TEMP ABOVE 100 Stop: 07/23/19 06:37 Last Admin: 05/24/19 12:02 Dose: 650 mg Acetaminophen (Tylenol) 650 mg PO Q6H PRN PRN Reason: pain Stop: 07/23/19 10:07 Last Admin: 05/25/19 05:36 Dose: 650 mg Al Hydrox/Mg Hydrox/Simethicone (Maalox) 30 ml PO Q4HR PRN PRN Reason: Dyspepsia Stop: 07/23/19 09:57 Amlodipine Besylate (Norvasc) 10 mg PO DAILY [facility] Stop: 07/23/19 10:14 Last Admin: 05/26/19 08:08 Dose: 10 mg Aspirin (Aspirin Chewable) 81 mg PO DAILY [facility] Stop: 07/23/19 09:59 Last Admin: 05/26/19 08:09 Dose: 81 mg Atorvastatin Calcium (Lipitor) 40 mg PO HS [facility]; Protocol Stop: 07/23/19 20:59 Last Admin: 05/25/19 21:20 Dose: 40 mg Benazepril HCl (Lotensin) 20 mg PO BID [facility] Stop: 07/23/19 16:59 Last Admin: 05/26/19 08:10 Dose: 20 mg Dextrose (Glutose 40%) 18.75 gm PO PRN PRN PRN Reason: BS Below 70 if tolerate po Stop: 07/23/19 10:09 Glipizide (Glucotrol) 10 mg PO BIDAC [facility] Stop: 07/23/19 16:29 Last Admin: 05/26/19 07:07 Dose: Not Given Glucagon (Glucagen) 1 mg IM PRN PRN PRN Reason: BS Below 70 if not tolerate po Stop: 07/23/19 10:09 Hydralazine HCl (Apresoline) 25 mg PO DAILY [facility] Stop: 07/23/19 10:14 Last Admin: 05/26/19 08:08 Dose: 25 mg Insulin Human Lispro (Humalog Insulin Sliding Scale) 0 units SUBQ ACHS [facility]; Protocol Stop: 07/23/19 11:29 Last Admin: 05/26/19 07:08 Dose: Not Given Lorazepam (Ativan) 0.5 mg PO Q4HR PRN; Protocol PRN Reason: anxiety and agitation Stop: 07/24/19 02:01 Last Admin: 05/26/19 08:09 Dose: 0.5 mg Magnesium Hydroxide (Milk Of Magnesia) 30 ml PO HS PRN PRN Reason: Constipation Stop: 07/23/19 10:05 Metoprolol Tartrate (Lopressor) 50 mg PO BID [facility] Stop: 07/23/19 10:14 Last Admin: 05/26/19 08:07 Dose: 50 mg Ondansetron HCl (Zofran Odt) 4 mg PO Q6H PRN PRN Reason: Nausea / Vomiting Stop: 07/23/19 10:06 Quetiapine Fumarate (Seroquel) 37.5 mg PO BID [facility]; Protocol Stop: 07/24/19 16:59 Last Admin: 05/26/19 08:09 Dose: 37.5 mg Quetiapine Fumarate (Seroquel) 12.5 mg PO HS [facility]; Protocol Stop: 07/24/19 20:59 Last Admin: 05/25/19 21:19 Dose: 12.5 mg Spironolactone (Aldactone) 25 mg PO DAILY [facility] Stop: 07/23/19 10:14 Last Admin: 05/26/19 08:10 Dose: 25 mg Zolpidem Tartrate (Ambien) 5 mg PO HS PRN PRN Reason: Insomnia Stop: 07/24/19 02:01 Last Admin: 05/25/19 21:19 Dose: 5 mg General: No acute distress Cardiovascular: Regular rate, Normal S1, Normal S2 Lungs: Clear to auscultation Abdomen: Bowel sounds Assessment/Plan - Assessment Assessment: * Dementia * Unspecified psychosis * CAD * HTN * DM * CKD * CVA * Possible UTI * S/P hysterectomy * S/P enderactomy * S/P hand surgery - Plan Plan: * Continue current meds * Awaiting urine culture results * Further per psychiatry Nutritional Asmnt/Malnutr-PDOC - Dietary Evaluation Malnutrition Findings (Please click <Entered> for more info): Nutritional Asmnt/Malnutrition Start: 05/25/19 14: 33 Text: Status: Active Freq: Protocol: Document 05/25/19 14:33 LUIS (Rec: 05/25/19 14:36 LUIS [email or web address]) Nutritional Asmnt/Malnutrition Patient General Information Nutritional Screening Moderate Risk Diagnosis Psychosis Pertinent Medical Hx/Surgical Hx HTN, CAD, CVA, Depression, DM Subjective Information Pt is a 74-year-old female admitted on 05/21 d/t agitation and confusion. Pt is eating an estimated 60% of meals Per Meal/Nutrition Activity Record. Dietary is currently providing an estimated 2450 kcals and 130 gm Pro, per Pt PO intake this is providing an estimated 1470 kcals and 78gm Pro to meet 88 % kcal and 100% Pro needs- adequate. Glucerna TID has been added to pt meal trays per family request. Per family request, almond milk has been added to every meal as well. Anthropometrics HT: 57 WT: 146 LB (66.36 kg) BMI: 22.94 (Normal) GI/ Skin Integrity GI: Soft, Round BM: 05/24 x1 I/O: 2400/Not Noted Skin: WNL, Intact, scab on toe (on admittance) Andres: 15 Diet Order: CCHO, Chopped Estimated Energy Needs: ( Geriatric, CBW) 0411-1985 kcals (25-30 kcals/ kg) 66-80g Pro (1.0-1.2 g/kg) 5405-4337 ml (25-30 ml/kg) Current Diet Order/ Nutrition Support CCHO, Chopped Pertinent Medications Maalox (PRN), Lipitor, Glutose 40% (PRN), Glucagen (PRN), INS-SS, MOM (PRN), Aldactone, Zofran ODT (PRN) Pertinent Labs 05/24: Glucose 144, BUN/Cr 22/ 1.22 Nutritional Hx/Data Height 1.7 m Height (Calculated Centimeters) 170.2 Current Weight (lbs) 66.224 kg Weight (Calculated Kilograms) 66.2 Weight (Calculated Grams) 95267.5 [place] Body Weight 135 LB (61.36 kg) % [place] Body Weight 108 Body Mass Index (BMI) 22.8 Weight Status Approriate GI Symptoms Last BM 05/24 x1 Skin Integrity/Comment: Skin: WNL, Intact, scab on toe (on admittance) Andres: 15 Current %PO Fair (50-74%) Estimated Nutritional Goals BEE in Kcals: Using Current wt Calories/Kcals/Kg 25-30 Kcals Calculated 1660-3550 Protein: Using Current wt Protein g/k.0-1.2 Protein Calculated 66-80 Fluid: ml 1860-9487 ml (25-30 ml/kg) Nutritional Problem 1. Problem Problem Impaired nutrient utilization Etiology r/t endocrine dysfunction Signs/Symptoms: aeb Glucose 144 and Hx DM. Malnutrition Related to Morbid Obesity Malnutrition related to morbid obesity No Intervention/Recommendation Comments 1. Continue CCHO, Chopped diet as tolerated. 2. Pt food likes/dislikes updated (completed). Expected Outcomes/Goals Expected Outcomes/Goals 1. PO intake to continue to meet >75% of estimated nutritional needs. 2. Monitor PO intake, wt, nutrition related labs, and skin integrity. 3. F/U as low risk in 7-10 days, 06/01-06/04
--- NOTE | 2019-05-26 21:02 | Progress Notes ---
DATE: 05/26/2019 Case was discussed with staff of the patient, reviewed records Covering for Dr. Hsieh. This is a 74-year-old female, who was admitted on 05/22/2019. She was decompensating back in Geropsych, confused, disorganized, disoriented, and restless, needing a higher level of prompting and redirection, aggressive at times, difficult to control. History of dementia. She was living at home with her daughter. She has two caretakers. The patient continues to be confused, demented. She is on Seroquel that was increased. No side effects with the medication, no sedation, no nausea, no extrapyramidal symptoms. Unable to participate in meaningful conversation or make safe plan for self-care. Her current dose of Zyprexa is 37.5 mg twice a day and 12.5 mg at bedtime. We will continue to work with the patient in group therapy, milieu therapy, adjust medication as needed. [facility]# [id number] VINNIE
== END 2019-05-26 19:50 | disposition short-term general hospital (02) | DRG 884 ==
LOC: GERO 09:55 → UNDODISIN 05-23 19:00 → GERO 05-24 01:25
PROVIDERS: ADMIT Psychiatry & Neurology Psychiatry; ATTEND Psychiatry & Neurology Psychiatry
DX: F03.91 Unspecified dementia, unspecified severity, with behavioral disturbance (principal); N18.9 Chronic kidney disease, unspecified; I25.10 Atherosclerotic heart disease of native coronary artery without angina pectoris; F29 Unspecified psychosis not due to a substance or known physiological condition; I12.9 Hypertensive chronic kidney disease with stage 1 through stage 4 chronic kidney disease, or unspecified chronic kidney disease; E11.22 Type 2 diabetes mellitus with diabetic chronic kidney disease; Z86.73 Personal history of transient ischemic attack (TIA), and cerebral infarction without residual deficits; Z90.710 Acquired absence of both cervix and uterus; Z79.82 Long term (current) use of aspirin; Z79.84 Long term (current) use of oral hypoglycemic drugs; Z88.0 Allergy status to penicillin; Z88.8 Allergy status to other drugs, medicaments and biological substances; Z66 Do not resuscitate
CPT/HCPCS: 83036-90; Z7610